=== PATIENT | male | born 1950 | race Caucasian/White ===

== ENCOUNTER 2016-08-17 09:40 | Emergency (ER) | payer MEDICAID, MEDICARE ==
--- NOTE | 2016-08-17 12:43 | ER Document Report ---
ED General - General Chief Complaint: Low Back Pain Stated Complaint: BACK/HIP PAIN Mode of Arrival: Ambulatory Information source: Patient TRAVEL OUTSIDE OF THE [place] IN LAST 30 DAYS: No - HPI Onset: Yesterday - LAST PM Onset/Duration: Gradual Quality of pain: Dull Severity: Moderate Context: NO INJURY OR INCIDENT RECALLED Associated symptoms: None Exacerbated by: Movement, Walking Relieved by: Remaining still - PARTIAL RELIEF Similar symptoms previously: Yes - HAS CHRONIC PAIN IN LOW BACK Recently seen / treated by doctor: Yes Notes: Patient states he saw Dr. Bonilla (pain management) and had injection in his back 3 weeks ago. Also, he has seen Dr. Lantigua in the past few days and was begun on Ceftin for a respiratory infection. Also, upon visiting Dr. Grzegorz torres, he was found to have new onset of type II diabetes and was begun on metformin. - Related Data Allergies/Adverse Reactions: No Known Allergies Allergy (Verified 08/17/16 09:47) Past Medical History - General Information source: Patient - Social History Smoking Status: Former Smoker Cigarette use (# per day): No Chew tobacco use (# tins/day): No Frequency of alcohol use: None Drug Abuse: None Family History: Arthritis, CAD, CVA, Hyperlipidemia, Hypertension, Malignancy Patient has suicidal ideation: No Patient has homicidal ideation: No - Past Medical History Cardiac Medical History: Reports: Hx Hypercholesterolemia, Hx Hypertension Denies: Hx Heart Attack Pulmonary Medical History: Reports: Hx Bronchitis Denies: Hx Asthma Neurological Medical History: Denies: Hx Cerebrovascular Accident, Hx Seizures Renal/ Medical History: Reports: Hx Benign Prostatic Hyperplasia. Denies: Hx Peritoneal Dialysis GI Medical History: Reports: Hx Gastroesophageal Reflux Disease, Hx Colonoscopy , Hx Endoscopy. Denies: Hx Hepatitis, Hx Hiatal Hernia, Hx Ulcer Musculoskeltal Medical History: Reports Hx Arthritis - RA, Reports Hx Gout, Reports Hx Musculoskeletal Deformity, Reports Hx Musculoskeletal Trauma Infectious Medical History: Denies: Hx Hepatitis Past Surgical History: Reports: Hx Cholecystectomy, Hx Orthopedic Surgery - Cervical spinal fusion. Denies: Hx Open Heart Surgery, Hx Pacemaker - Immunizations Hx Diphtheria, Pertussis, Tetanus Vaccination: Yes Review of Systems - Review of Systems Constitutional: No symptoms reported. denies: Chills, Diaphoresis, Fever EENT: No symptoms reported Cardiovascular: No symptoms reported Respiratory: Cough Gastrointestinal: No symptoms reported Genitourinary: No symptoms reported. denies: Incontinence, Retention Musculoskeletal: See HPI, Joint pain - LEFT HIP Skin: No symptoms reported Neurological/Psychological: No symptoms reported Physical Exam - Vital signs Vitals: Temp Pulse Resp BP Pulse Ox 98.1 F 95 18 106/61 94 08/17/16 09:46 08/17/16 09:46 08/17/16 09:46 08/17/16 09:46 08/17/16 09:46 Interpretation: Normal - General General appearance: Appears well, Alert In distress: None - HEENT Head: Normocephalic Eyes: Normal Conjunctiva: Normal Ears: Normal Nasal: Normal Mouth/Lips: Normal Mucous membranes: Normal - Respiratory Respiratory status: No respiratory distress Breath sounds: Normal - Cardiovascular Rhythm: Regular Heart sounds: Normal auscultation Murmur: No - Abdominal Inspection: Obese - Back Back: Normal, Nontender - Extremities General upper extremity: Normal inspection General lower extremity: Normal inspection Hip: Other - No pain with passive rotation of left hip joint. Positive pain with straight leg raising at 30 on left. - Neurological Neuro grossly intact: Yes Cognition: Normal Orientation: AAOx4 - Psychological Associated symptoms: Normal affect, Normal mood - Skin Skin Temperature: Warm Skin Moisture: Dry Skin Color: Normal Skin Turgor: Elastic Course - Vital Signs Vital signs: Temp Pulse Resp BP Pulse Ox 98.1 F 95 18 106/61 94 08/17/16 09:46 08/17/16 09:46 08/17/16 09:46 08/17/16 09:46 08/17/16 09:46 - Laboratory Result Diagrams: 08/17/16 13:46 Laboratory results interpreted by me: 08/17/16 08/17/16 13:46 13:46 RBC 3.92 L Hgb 13.0 L RDW 14.4 H ESR 101 H C-Reactive Protein 48.2 H Remarkable results from laboratory studies include a normal WBC count. Sedimentation rate and CRP are elevated, probably due to the patient's chronic rheumatic disease. - Diagnostic Test Radiology reviewed: Image reviewed, Reports reviewed Discharge - Discharge Clinical Impression: Low back pain with left-sided sciatica Qualifiers: Chronicity: acute Back pain laterality: midline Qualified Code(s): M54.42 - Lumbago with sciatica, left side Condition: Stable Disposition: HOME, SELF-CARE Instructions: Low Back Pain ([facility]), Oral Narcotic Medication ([facility]), Pain Medication Injection ([facility]), Warm Packs ([facility]), Ibuprofen (General) ([facility]) Additional Instructions: AVOID PAINFUL ACTIVITY. RESUME TAKING IBUPROFEN, 800 mg THREE TIMES A DAY. YOU MAY TAKE DILAUDID IF NEEDED FOR PAIN. CONTINUE ALL OTHER MEDS BEFORE. FOLLOW UP WITH DR. LANTIGUA IN 3-7 DAYS. RETURN TO E.R. IF PROBLEMS. Prescriptions: Hydromorphone HCl [Dilaudid 2 Mg Tablet] 2 mg PO Q4HP PRN #10 tablet PRN Reason: For Pain Ibuprofen [Motrin 800 mg Tablet] 800 mg PO Q8 PRN #20 tablet PRN Reason: For Pain Referrals: NEGRO LANTIGUA MD [[facility]] - Follow up in 3-5 days
[2016-08-17] MEDS ORDERED: HYDROMORPHONE HCL INJ/PF 2 MG/ML AMPULE IM ONE (13:22)
[2016-08-17] MEDS ORDERED: ONDANSETRON 4 MG TAB.RAPDIS PO ONE (13:22)
[2016-08-17 14:06] LABS: ABSOLUTE EOSINOPHILS # (AUTO) 0.3 10^3/uL (0.0-0.6); ABSOLUTE LYMPHOCYTES (AUTO) 1.1 10^3/uL (0.5-4.7); ABSOLUTE NEUT (AUTO) 5.5 10^3/uL (1.7-8.2); BASOPHILS % (AUTO) 0.3 % (0-2); EOSINOPHILS % (AUTO) 3.5 % (0-6); HEMATOCRIT 37.9 % (37.9-51.0); HGB HCT DIFFERENCE 1.1; LYMPHOCYTES % (AUTO) 14.1 % (13-45); MEAN CORPUSCULAR HEMOGLOBIN 33.1 pg (27.0-33.4); MEAN CORPUSCULAR HGB CONC 34.2 g/dL (32.0-36.0); MEAN CORPUSCULAR VOLUME 97 fl (80-97); MONOCYTES % (AUTO) 12.6 % (3-13); RED BLOOD COUNT 3.92 10^6/uL (4.35-5.55); RED CELL DISTRIBUTION WIDTH 14.4 % (11.5-14.0); SEGMENTED NEUTROPHILS % (AUTO) 69.5 % (42-78); WHITE BLOOD COUNT 7.9 10^3/uL (4.0-10.5)
[2016-08-17 14:39] LABS: ERYTHROCYTE SEDIMENTATION RATE 101 mm/hr (0-20)
[2016-08-17 15:57] VITALS: BP 108/56
== END 2016-08-17 15:58 | disposition home or self-care (01) ==
LOC: ER 09:40
DX: M54.42 Lumbago with sciatica, left side (principal); G89.29 Other chronic pain; M06.9 Rheumatoid arthritis, unspecified; M25.552 Pain in left hip; R05 Cough; E11.9 Type 2 diabetes mellitus without complications; J98.8 Other specified respiratory disorders; I10 Essential (primary) hypertension; Z98.1 Arthrodesis status; Z87.891 Personal history of nicotine dependence; Z98.890 Other specified postprocedural states
CPT/HCPCS: 99284; 96372; 36415; 85025; 85652; 86140; 72110; A9270; J1170; S0119

== ENCOUNTER → 2016-09-23 | Outpatient (CLI) | payer MEDICARE ==
[2016-09-23 13:41] LABS: HEMATOCRIT 33.3 % (37.9-51.0); HEMOGLOBIN 11.3 g/dL (13.5-17.0); HGB HCT DIFFERENCE 0.6; MEAN CORPUSCULAR HEMOGLOBIN 33.2 pg (27.0-33.4); MEAN CORPUSCULAR VOLUME 98 fl (80-97); RED BLOOD COUNT 3.41 10^6/uL (4.35-5.55); RED CELL DISTRIBUTION WIDTH 14.8 % (11.5-14.0); WHITE BLOOD COUNT 7.2 10^3/uL (4.0-10.5)
[2016-09-23 14:44] LABS: BASOPHILS % (MANUAL) 0 % (0-2); EOSINOPHILS % (MANUAL) 5 % (0-6); LYMPHOCYTES % (MANUAL) 25 % (13-45); TOTAL CELLS COUNTED 100
[2016-09-23 14:45] LABS: ANISOCYTOSIS SLIGHT; POLYCHROMASIA SLIGHT; TOXIC GRANULATION SLIGHT
== END ==
LOC: OD 12:17
PROVIDERS: ATTEND Internal Medicine
DX: J20.9 Acute bronchitis, unspecified (principal); R05 Cough
CPT/HCPCS: 36415; 71020; 85025

== ENCOUNTER → 2017-04-12 | Outpatient (CLI) | payer MEDICARE, OTHER ==
--- NOTE | 2017-04-12 19:41 | EKG REPORT ---
SEVERITY:- ABNORMAL ECG - SINUS RHYTHM BORDERLINE LEFT AXIS DEVIATION BORDERLINE R WAVE PROGRESSION, ANTERIOR LEADS NONSPECIFIC T ABNORMALITIES, INFERIOR LEADS : Confirmed by: Christie Schneider MD 12-Apr-2017 19:40:57
== END ==
LOC: OD 13:16
PROVIDERS: ATTEND Internal Medicine Nephrology
DX: E11.22 Type 2 diabetes mellitus with diabetic chronic kidney disease (principal); I13.0 Hypertensive heart and chronic kidney disease with heart failure and stage 1 through stage 4 chronic kidney disease, or unspecified chronic kidney disease; N18.3 Chronic kidney disease, stage 3 (moderate); I50.9 Heart failure, unspecified; R60.9 Edema, unspecified; N40.0 Benign prostatic hyperplasia without lower urinary tract symptoms
CPT/HCPCS: 93005; 93010

== ENCOUNTER 2017-06-14 18:53 | Inpatient (IN) | payer MEDICARE, OTHER ==
[2017-06-12] MEDS: ROCURONIUM BROMIDE INJ 50 MG/5 ML VIAL IV PRN (09:45)
[2017-06-14] MEDS ORDERED: PIPERACILLIN/TAZOBACTAM 4.5 GM VIAL IV ONE (20:46)
[2017-06-14] MEDS ORDERED: VANCOMYCIN HCL INJ 1000 MG VIAL IV ONE (20:46)
[2017-06-14] MEDS ORDERED: ACETAMINOPHEN 325 MG TABLET PO ONE (20:46)
[2017-06-14] MEDS ORDERED: NORMAL SALINE 1000 ML 1,000 ML IV ONE (20:46)
--- NOTE | 2017-06-14 20:48 | ER Document Report ---
ED Medical Screen (RME) - General Chief Complaint: Skin Sore(s) Stated Complaint: SKIN PROBLEM Time Seen by Provider: 06/14/17 20:46 Notes: Patient has progressive area of redness and swelling on his right face with fevers. He has been on amoxicillin at home with no relief. TRAVEL OUTSIDE OF THE [place] IN LAST 30 DAYS: No - Related Data Allergies/Adverse Reactions: No Known Allergies Allergy (Verified 06/14/17 18:54) Past Medical History - Social History Chew tobacco use (# tins/day): No Frequency of alcohol use: None Drug Abuse: None - Past Medical History Cardiac Medical History: Reports: Hx Hypercholesterolemia, Hx Hypertension Denies: Hx Heart Attack Pulmonary Medical History: Reports: Hx Bronchitis Denies: Hx Asthma Neurological Medical History: Denies: Hx Cerebrovascular Accident, Hx Seizures Renal/ Medical History: Reports: Hx Benign Prostatic Hyperplasia. Denies: Hx Peritoneal Dialysis GI Medical History: Reports: Hx Gastroesophageal Reflux Disease, Hx Colonoscopy , Hx Endoscopy. Denies: Hx Hepatitis, Hx Hiatal Hernia, Hx Ulcer Musculoskeltal Medical History: Reports Hx Arthritis - RA, Reports Hx Gout, Reports Hx Musculoskeletal Deformity, Reports Hx Musculoskeletal Trauma Infectious Medical History: Denies: Hx Hepatitis Past Surgical History: Reports: Hx Cholecystectomy, Hx Orthopedic Surgery - Cervical spinal fusion. Denies: Hx Open Heart Surgery, Hx Pacemaker - Immunizations Hx Diphtheria, Pertussis, Tetanus Vaccination: Yes Physical Exam - Vital signs Vitals: Temp Pulse Resp BP Pulse Ox 100.6 F H 104 H 20 140/93 H 96 06/14/17 19:35 06/14/17 19:35 06/14/17 19:35 06/14/17 19:35 06/14/17 19:35 Course - Vital Signs Vital signs: Temp Pulse Resp BP Pulse Ox 100.6 F H 104 H 20 140/93 H 96 06/14/17 19:35 06/14/17 19:35 06/14/17 19:35 06/14/17 19:35 06/14/17 19:35
[2017-06-14 21:52] LABS: VENOUS BLOOD BASE EXCESS 2.8 mmol/L; VENOUS BLOOD HCO3 24.6 mmol/L (20-32); VENOUS BLOOD PCO2 31.3 mmHg (35-63); VENOUS BLOOD PH 7.51 (7.30-7.42)
[2017-06-14 21:58] LABS: ABSOLUTE EOSINOPHILS # (AUTO) 0.1 10^3/uL (0.0-0.6); ABSOLUTE LYMPHOCYTES (AUTO) 1.2 10^3/uL (0.5-4.7); ABSOLUTE MONOCYTES (AUTO) 1.6 10^3/uL (0.1-1.4); ABSOLUTE NEUT (AUTO) 5.4 10^3/uL (1.7-8.2); BASOPHILS % (AUTO) 0.3 % (0-2); EOSINOPHILS % (AUTO) 1.2 % (0-6); HEMOGLOBIN 11.4 g/dL (13.5-17.0); MEAN CORPUSCULAR HEMOGLOBIN 33.2 pg (27.0-33.4); MEAN CORPUSCULAR HGB CONC 34.4 g/dL (32.0-36.0); MEAN CORPUSCULAR VOLUME 97 fl (80-97); MONOCYTES % (AUTO) 19.1 % (3-13); RED BLOOD COUNT 3.42 10^6/uL (4.35-5.55); RED CELL DISTRIBUTION WIDTH 13.3 % (11.5-14.0); SEGMENTED NEUTROPHILS % (AUTO) 65.4 % (42-78); TOTAL CELLS COUNTED % (AUTO) 100 %; WHITE BLOOD COUNT 8.3 10^3/uL (4.0-10.5)
--- NOTE | 2017-06-14 22:16 | ER Document Report ---
ED General - General Chief Complaint: Skin Sore(s) Stated Complaint: SKIN PROBLEM Time Seen by Provider: 06/14/17 20:46 Notes: Patient is a 66-year-old male who is a diabetic who presents with complaint of facial infection. He says several days ago he had this red bump. His face. He said that red bumps are spreading redness started to spread and he developed some crusting and drainage along the face. He saw his primary care doctor who placed him on amoxicillin. His redness has continued spreading and is getting worse. Started having fevers today. No vomiting. No diarrhea. He is a diabetic. He said blood sugars have been well controlled. No other complaints at this time. Patient did have the shingles vaccination approximately last week. Patient says the redness is starting to get near the base of his right eye but says his vision in his right eye is not affected. TRAVEL OUTSIDE OF THE [place] IN LAST 30 DAYS: No - Related Data Allergies/Adverse Reactions: No Known Allergies Allergy (Verified 06/14/17 18:54) Past Medical History - Social History Smoking Status: Never Smoker Chew tobacco use (# tins/day): No Frequency of alcohol use: None Drug Abuse: None Family History: Arthritis, CAD, CVA, Hyperlipidemia, Hypertension, Malignancy Patient has suicidal ideation: No Patient has homicidal ideation: No - Past Medical History Cardiac Medical History: Reports: Hx Hypercholesterolemia, Hx Hypertension Denies: Hx Heart Attack Pulmonary Medical History: Reports: Hx Bronchitis Denies: Hx Asthma Neurological Medical History: Denies: Hx Cerebrovascular Accident, Hx Seizures Renal/ Medical History: Reports: Hx Benign Prostatic Hyperplasia. Denies: Hx Peritoneal Dialysis GI Medical History: Reports: Hx Gastroesophageal Reflux Disease, Hx Colonoscopy , Hx Endoscopy. Denies: Hx Hepatitis, Hx Hiatal Hernia, Hx Ulcer Musculoskeltal Medical History: Reports Hx Arthritis - RA, Reports Hx Gout, Reports Hx Musculoskeletal Deformity, Reports Hx Musculoskeletal Trauma Infectious Medical History: Denies: Hx Hepatitis Past Surgical History: Reports: Hx Cholecystectomy, Hx Orthopedic Surgery - Cervical spinal fusion. Denies: Hx Open Heart Surgery, Hx Pacemaker - Immunizations Hx Diphtheria, Pertussis, Tetanus Vaccination: Yes Review of Systems - Review of Systems Notes: My Normal Review Basic REVIEW OF SYSTEMS: CONSTITUTIONAL : Denies fever, chills, or sweats. Denies recent illness. EENT: Redness over the right cheek and right side of face. CARDIOVASCULAR: Denies chest pain. RESPIRATORY: Denies cough, cold, or chest congestion. Denies shortness of breath, difficulty breathing, or wheezing. GASTROINTESTINAL: Denies abdominal pain. Denies nausea, vomiting, or diarrhea. Denies constipation. Last BM: MUSCULOSKELETAL: Denies neck or back pain or joint pain or swelling. SKIN: Denies rash or skin lesions. NEUROLOGICAL: Denies altered mental status or loss of consciousness. Denies headache. Denies weakness or paralysis or loss of use of either side. Denies problems with gait or speech. Denies sensory or motor loss. ALL OTHER SYSTEMS REVIEWED AND NEGATIVE. Physical Exam - Vital signs Vitals: Temp Pulse Resp BP Pulse Ox 100.6 F H 104 H 20 140/93 H 96 06/14/17 19:35 06/14/17 19:35 06/14/17 19:35 06/14/17 19:35 06/14/17 19:35 - Notes Notes: General Appearance: Well nourished, alert, cooperative, no acute distress, no obvious discomfort. Vitals: reviewed, See vital signs table. Head: Redness and swelling over the right side of face. It seems initiate from the right zygomatic arch and spread towards the right nose and then superiorly up to his right face. There is some crusting so she with this. Redness just starts to extend into the right lower eyelid but the eye itself does not appear to be red or infected at this time. Eyes: PERRL, EOMI, Conjuctiva clear. No dendritic lesions seen on fluoroscein staining and on slit lamp examination Mouth: No decreasd moisture. Patient has false teeth only. Throat: No tonsillar inflammation, No airway obstruction, No lymphadenopathy Neck: Supple, no neck tenderness, No thyromegaly Lungs: No wheezing, No rales, No rhonci, No accessory muscle use, good air exchange bilaterally. Heart: Normal rate, Regular rythm, No murmur, no rub Extremities: strength 5/5 in all extremities, good pulses in all extremities, no swelling or tenderness in the extremities, no edema. Skin: warm, dry, appropriate color, no rash Neuro: speech clear, oriented x 3, normal affect, responds appropriately to questions. Course - Re-evaluation Re-evalutation: 06/15/17 00:51 Redness and the patient's face continues spread is not past the midline. They have concerned that this could be facial shingles. I did do a ophthalmic exam. I do not see any evidence of dendritic lesions. I have treated patient for both potential bacterial as well as herpetic infection. I have given both antibiotics and acyclovir. I will wait to speak with the hospitalist for potential admission. CT scan of the face shows no evidence of facial abscess. 06/15/17 01:43 I initially tried to call the auto vinyl top installer on-call, Dr. Wells, but we did not hear back. The roll line operator was able to get in touch with his partner,Dr. Kumari. He agrees with the IV acyclovir. He says if the eye itself starts to become red he would recommend actually applying bacitracin ophthalmic ointment to the eye as it is still not 100% clear that this could also be bacterial and patient could also get a bacterial superinfection of the eye. He also took down the patient's numbers that when the patient is eventually discharged from the hospital that he can follow-up with the patient and recheck him. 06/15/17 06:23 I do suspect patient was likely has a facial shingles with a bacterial superinfection. He is being treated for both. He is on immunosuppressive therapy and therefore treatment will need continued and most likely he will need admission. I did speak with the hospitalist, Dr. Oshea, who agreed to accept the patient. Dictation of this chart was performed using voice recognition software; therefore, there may be some unintended grammatical errors. - Vital Signs Vital signs: Temp Pulse Resp BP Pulse Ox 101.3 F H 70 14 126/71 H 96 06/15/17 05:37 06/14/17 23:18 06/15/17 06:01 06/15/17 06:01 06/15/17 06:01 - Laboratory Result Diagrams: 06/14/17 21:30 06/14/17 21:30 Laboratory results interpreted by me: 06/14/17 06/14/17 06/14/17 21:30 21:30 21:30 RBC 3.42 L Hgb 11.4 L Hct 33.0 L Plt Count 69 L Monocytes % 19.1 H Absolute Monocytes 1.6 H VBG pH 7.51 H VBG pCO2 31.3 L BUN 24 H Creatinine 1.74 H Est GFR ( Amer) 48 L Est GFR (Non-Af Amer) 39 L Direct Bilirubin 0.6 H AST 64 H Urine Blood Urine Urobilinogen 06/15/17 01:05 RBC Hgb Hct Plt Count Monocytes % Absolute Monocytes VBG pH VBG pCO2 BUN Creatinine Est GFR ( Amer) Est GFR (Non-Af Amer) Direct Bilirubin AST Urine Blood MODERATE H Urine Urobilinogen 2.0 H Discharge - Discharge Clinical Impression: Cellulitis Qualifiers: Site of cellulitis: face Qualified Code(s): L03.211 - Cellulitis of face Condition: Stable Disposition: ADMITTED INPATIENT Admitting Provider: Hospitalist Unit Admitted: Medical Floor
[2017-06-14 22:18] LABS: ALANINE AMINOTRANSFERASE 35 U/L (21-72); ALBUMIN 3.8 g/dL (3.5-5.0); ALKALINE PHOSPHATASE 59 U/L (38-126); ANION GAP 8 (5-19); ASPARTATE AMINO TRANSFERASE 64 U/L (17-59); BILIRUBIN,DIRECT 0.6 mg/dL (0.0-0.4); BILIRUBIN,TOTAL 1.1 mg/dL (0.2-1.3); BLOOD UREA NITROGEN 24 mg/dL (7-20); CALCIUM 9.2 mg/dL (8.4-10.2); CARBON DIOXIDE 26 mmol/L (22-30); CHLORIDE 106 mmol/L (98-107); GLUCOSE 110 mg/dL (75-110); PLATELET COUNT 69 10^3/uL (150-450); POTASSIUM 3.9 mmol/L (3.6-5.0); SODIUM 140.4 mmol/L (137-145); TOTAL PROTEIN 7.7 g/dL (6.3-8.2)
--- NOTE | 2017-06-14 23:57 | RADIOLOGY REPORT (SQ) ---
EXAM DESCRIPTION: CT FACIAL AREA WITH COMPLETED DATE/TIME: 06/14/2017 11:11 pm REASON FOR STUDY: abscess of face COMPARISON: None. TECHNIQUE: Post contrast images through the facial bones and orbits windowed for bone and soft tissu e. Additional coronal and sagittal reconstructed images reviewed. All images stored on PACS. All CT scanners at this facility use dose modulation, iterative reconstruction, and/or weight based d osing when appropriate to reduce radiation dose to as low as reasonably achievable (ALARA). [facility]: Dose Right [facility]: CareDose [facility]: Dose Right [facility]: Teradose 4D [facility]: Tapru CONTRAST TYPE AND DOSE: contrast/concentration: Isovue 300.00 mg/ml; Total Contrast Delivered: 63.4 ml; Total Saline Delivered: 36.0 ml RENAL FUNCTION: BUN 24 creatinine 1.74 RADIATION DOSE: CT Rad equipment meets quality standard of care and radiation dose reduction techniq ues were employed. CTDIvol: 30.4 mGy. DLP: 619 mGy-cm. . LIMITATIONS: None. FINDINGS: FACIAL BONES: No fracture or bone lesion. ORBITS: Intact. No fracture. Symmetric intact globes and retroorbital soft tissues. PARANASAL SINUSES: Clear. No significant mucosal thickening, mass or fluid. No nasal polyps. Maxilla ry sinus outlets are patent. SOFT TISSUES: Diffuse swelling -cellulitis throughout the subcutaneous fat of the right facial soft t issues including the midline upper lip. No rim enhancing fluid collection is identified or radiopaqu e foreign bodies. INFERIOR BRAIN: Limited view. No acute findings. OTHER: No other significant finding. IMPRESSION: Diffuse swelling -cellulitis throughout the subcutaneous fat of the right facial soft ti ssues including the midline upper lip. No rim enhancing fluid collection is identified or radiopaque foreign bodies. TECHNICAL DOCUMENTATION: JOB ID: [id number] Quality ID # [id number]: Final reports with documentation of one or more dose reduction techniques (e.g., Au tomated exposure control, adjustment of the mA and/or kV according to patient size, use of iterative reconstruction technique) 2010 [employer]- All Rights Reserved
[2017-06-15] MEDS ORDERED: TETRACAINE HCL 0.5% OPH SOLN 2 ML OD ONE (00:31)
[2017-06-15] MEDS ORDERED: ACYCLOVIR SODIUM INJ/PF 500 MG/10 ML SDV IV ONE (00:33)
[2017-06-15] MEDS ORDERED: PIPERACILLIN/TAZOBACTAM 4.5 GM VIAL IV ONE (01:00)
[2017-06-15 01:41] LABS: APPEARANCE,URINE CLEAR; BILIRUBIN,URINE NEGATIVE (NEGATIVE); COLOR,URINE YELLOW; GLUCOSE, URINE NEGATIVE (NEGATIVE); KETONES,URINE NEGATIVE (NEGATIVE); LEUKOCYTE ESTERASE,URINE NEGATIVE (NEGATIVE); NITRITE,URINE NEGATIVE (NEGATIVE); PROTEIN,URINE NEGATIVE (NEGATIVE); URINE SPECIFIC GRAVITY 1.044
[2017-06-15] MEDS ORDERED: ONDANSETRON HCL INJ/PF 4 MG/2 ML SDV IV PRN (05:12)
[2017-06-15] MEDS ORDERED: OXYCODONE-ACETAMINOPHEN 5-325 MG TABLET PO PRN (05:12)
[2017-06-15] MEDS ORDERED: ZOLPIDEM TARTRATE 5 MG TABLET PO PRN (05:12)
[2017-06-15] MEDS ORDERED: ACYCLOVIR SODIUM INJ/PF 500 MG/10 ML SDV IV SCH (05:15)
[2017-06-15] MEDS ORDERED: DEXTROSE 40% GEL 15 GM TUBE PO PRN ×2 (05:24)
[2017-06-15] MEDS ORDERED: INSULIN LISPRO 100 UNIT/ML 3 ML VIAL SUBCUT PRN (05:24)
[2017-06-15] MEDS ORDERED: GLUCAGON,HUMAN RECOMB 1 MG INJ IM PRN (05:24)
[2017-06-15] MEDS ORDERED: DEXTROSE 50%-WATER 25 GM/50 ML DISP.SYRIN IV PRN ×2 (05:24)
--- NOTE | 2017-06-15 05:48 | PDOC H&P ---
History of Present Illness Admission Date/PCP: 06/15/17 03:50 NEGRO ALANIS MD Patient complains of: Painful eruption on right cheek History of Present Illness: STEFF LIND is a 66 year old male who recently had received shingles vaccine as many of his family members had come down with the shingles. 2 days ago he developed pustules on his right cheek which became more painful and so presented to the emergency room. Here he was felt to have trigeminal zoster and was started on antiviral therapy. He was also felt to have a component of bacterial superinfection and was also given antibiotics. He is referred to us for further management Past Medical History Cardiac Medical History: Reports: Hyperlipidema, Hypertension Denies: Myocardial Infarction Pulmonary Medical History: Reports: Bronchitis Denies: Asthma Neurological Medical History: Denies: Seizures Endocrine Medical History: Reports: Diabetes Mellitus Type 2 GI Medical History: Reports: Gastroesophageal Reflux Disease Denies: Hepatitis, Hiatal Hernia Musculoskeltal Medical History: Reports: Arthritis - RA, Gout Skin Medical History: Reports: Psoriasis Hematology: Denies: Anemia, Sickle Cell Disease Past Surgical History Past Surgical History: Reports: Cholecystectomy, Orthopedic Surgery - Cervical spinal fusion Denies: Pacemaker Social History Information Source: Patient Lives with: Spouse/Significant other Smoking Status: Never Smoker Frequency of Alcohol Use: None Hx Recreational Drug Use: No Drugs: None Hx Prescription Drug Abuse: No - Advance Directive Resuscitation Status: Full Code Family History Family History: Arthritis, CAD, CVA, Hyperlipidemia, Hypertension, Malignancy Parental Family History Reviewed: Yes Children Family History Reviewed: Yes Sibling(s) Family History Reviewed.: Yes Medication/Allergy Home Medications: Amlodipine Besylate/Benazepril [Amlodipine-Benazepril 2.5-10] 1 cap PO DAILY 11/01 Atenolol [Tenormin 25 mg Tablet] 10 mg PO DAILY 08/25/12 Dutasteride/Tamsulosin HCl [Candy 0.5-0.4 mg Capsule] 1 cap PO BID 08/25/12 Esomeprazole Mag Trihydrate [Nexium] 40 mg PO DAILY 08/25/12 Folic Acid [Folvite 1 mg Tablet] 1 mg PO DAILY 08/25/12 Gabapentin [Neurontin 100 mg Capsule] 400 mg PO BID 08/25/12 Methotrexate Sodium [Rheumatrex] 2.5 mg PO ASDIR 08/25/12 Oxycodone HCl [Oxycontin] 20 mg PO BID 08/25/12 Pravastatin Sodium [Pravachol] 40 mg PO DAILY 08/25/12 Tofacitinib Citrate [Xeljanz] 5 mg PO BID 04/19/13 Azithromycin [Zithromax 250 mg Tablet] 250 mg PO ASDIR PRN #6 tablet 05/06/13 Zolpidem Tartrate [Ambien 10 mg Tablet] 1 tab PO QHS 05/06/13 Hydromorphone HCl [Dilaudid 2 Mg Tablet] 2 mg PO Q4HP PRN #10 tablet 08/17/16 Ibuprofen [Motrin 800 mg Tablet] 800 mg PO Q8 PRN #20 tablet 08/17/16 Allergies/Adverse Reactions: No Known Allergies Allergy (Verified 06/14/17 18:54) Review of Systems Constitutional: ABSENT: fatigue, fever(s), headache(s), weakness Eyes: ABSENT: visual disturbances Ears: ABSENT: hearing changes Nose, Mouth, and Throat: ABSENT: mouth pain, sore throat Cardiovascular: PRESENT: edema. ABSENT: chest pain, dyspnea on exertion, orthropnea, palpitations Respiratory: PRESENT: dyspnea. ABSENT: cough Gastrointestinal: PRESENT: heartburn. ABSENT: constipation, diarrhea, nausea, vomiting Genitourinary: PRESENT: difficulty urinating, nocturia. ABSENT: dysuria Integumentary: PRESENT: other - Psoriatic plaques and dystrophic nails Neurological: ABSENT: abnormal gait, abnormal speech, confusion, dizziness, focal weakness, syncope Psychiatric: ABSENT: anxiety, depression, homidical ideation, suicidal ideation Endocrine: PRESENT: other - Diabetes Hematologic/Lymphatic: ABSENT: easy bleeding, easy bruising Physical Exam Vital Signs: Temp Pulse Resp BP Pulse Ox 98.2 F 70 18 121/74 96 06/15/17 03:00 06/14/17 23:18 06/15/17 04:01 06/15/17 05:01 06/15/17 04:31 General appearance: PRESENT: no acute distress, cooperative, obese Head exam: PRESENT: atraumatic, normocephalic Eye exam: PRESENT: EOMI, PERRLA Ear exam: PRESENT: normal external ear exam Neck exam: ABSENT: carotid bruit, JVD, meningismus Respiratory exam: PRESENT: clear to auscultation davin, symmetrical, unlabored. ABSENT: accessory muscle use, chest wall tenderness Cardiovascular exam: PRESENT: RRR. ABSENT: bradycardia, diastolic murmur, systolic murmur GI/Abdominal exam: PRESENT: normal bowel sounds, soft. ABSENT: guarding, organolmegaly, rebound, tenderness Rectal exam: PRESENT: deferred Extremities exam: PRESENT: +1 edema Musculoskeletal exam: PRESENT: normal inspection. ABSENT: deformity Neurological exam: PRESENT: alert, awake, oriented to person, oriented to place , oriented to time, oriented to situation Psychiatric exam: PRESENT: appropriate affect, normal mood. ABSENT: homicidal ideation, suicidal ideation Skin exam: PRESENT: dry, intact, warm, other - Psoriatic plaques. ABSENT: cyanosis, rash Results Laboratory Results: 06/14/17 06/14/17 06/15/17 21:30 21:30 01:05 WBC 8.3 RBC 3.42 L Hgb 11.4 L Hct 33.0 L Plt Count 69 L Monocytes % 19.1 H Sodium 140.4 BUN 24 H Creatinine 1.74 H AST 64 H ALT 35 Alkaline Phosphatase 59 Total Protein 7.7 Albumin 3.8 Ur Leukocyte Esterase NEGATIVE Impressions: Facial Bones CT 06/14/17 20:47 IMPRESSION: Diffuse swelling -cellulitis throughout the subcutaneous fat of the right facial soft tissues including the midline upper lip. No rim enhancing fluid collection is identified or radiopaque foreign bodies. Assessment & Plan - Diagnosis (1) Trigeminal herpes zoster Is this a current diagnosis for this admission?: Yes (2) Rheumatoid arthritis Qualifiers: Rheumatoid arthritis location: unspecified site Rheumatoid factor presence : unspecified presence Qualified Code(s): M06.9 - Rheumatoid arthritis, unspecified Is this a current diagnosis for this admission?: Yes (3) Psoriasis Is this a current diagnosis for this admission?: Yes (4) Thrombocytopenia Is this a current diagnosis for this admission?: Yes (5) DM2 (diabetes mellitus, type 2) Qualifiers: Diabetes mellitus complication status: with unspecified complications Diabetes mellitus usp insulin use: without usp use Qualified Code( s): E11.8 - Type 2 diabetes mellitus with unspecified complications Is this a current diagnosis for this admission?: Yes (6) BPH w urinary obs/LUTS Is this a current diagnosis for this admission?: Yes (7) HTN (hypertension) Qualifiers: Hypertension type: essential hypertension Qualified Code(s): I10 - Essential (primary) hypertension Is this a current diagnosis for this admission?: Yes - Time Time Spent: 30 to 50 Minutes - Inpatient Certification Based on my medical assessment, after consideration of the patient's comorbidities, presenting symptoms, or acuity I expect that the services needed warrant INPATIENT care.: Yes I certify that my determination is in accordance with my understanding of Medicare's requirements for reasonable and necessary INPATIENT services [42 CFR 412.3e].: Yes Medical Necessity: Significant Comorbidiites Make Outpatient Treatment Too Risky , Need For IV Fluids, Need for Pain Control, Need for IV Antibiotics - Plan Summary Plan Summary: Patient will be continued on intravenous acyclovir. I will defer to my daytime colleague's if they wish to continue antibiotics. Patient will receive DVT prophylaxis with low molecular weight heparin's He will receive medication for pain control and sliding scale insulin while in hospital Home medications will be continued except for his immune modulators. Anticipated length of stay is greater than 2 midnights.
[2017-06-15] MEDS ORDERED: RINGERS SOLUTION,LACTATED 1,000 ML IV PRN (05:51)
[2017-06-15 07:14] LABS: CHOLESTEROL 217.45 mg/dL (0-200); TRIGLYCERIDES 322 mg/dL (<150)
[2017-06-15 07:29] LABS: DIRECT LDL 94 mg/dL (<100)
[2017-06-15 07:30] LABS: VLDL CHOLESTEROL 64.4 mg/dL (10-31)
[2017-06-15] MEDS: NORMAL SALINE IV SCH ×2 (09:49→19:09)
[2017-06-15] MEDS: ACYCLOVIR SODIUM IV SCH ×2 (09:49→19:09)
[2017-06-15] MEDS: ACETAMINOPHEN 325 MG TABLET PO PRN ×3 (09:50→19:10)
[2017-06-15] MEDS: ENOXAPARIN SODIUM INJ 40 MG/0.4 ML DISP.SYRIN SUBCUT SCH (09:51)
[2017-06-15] MEDS: DOCUSATE SODIUM 100 MG CAPSULE PO SCH (09:51)
[2017-06-15] MEDS: FAMOTIDINE 20 MG TABLET PO SCH ×2 (09:51→21:18)
--- NOTE | 2017-06-15 10:09 | PROGRESS NOTE E ---
Progress Note NAME: STEFF LIND : 1950 AGE: 66Y DATE: 06/15/2017 ROOM: ED15 SUBJECTIVE: The patient is currently lying on a stretcher. He states that he does not feel well. He complains of full body aches. The patient denies any nausea or vomiting, diarrhea, does admit to some mild abdominal pain, but no shortness of breath or dizziness, no chest pain. No difficulty swallowing. No numbness. The patient has been quite febrile with a temperature of 101.6 and the patient has not voiced any other concerns at this time. REVIEW OF SYSTEMS: Rest of the review of systems negative. MEDICATIONS: Medications have been reviewed. OBJECTIVE: GENERAL: The patient is a 66-year-old, male, who is awake and alert. He is oriented to person, place, time and situation. He is verbal, conversational, and does not appear to be in any acute distress. VITAL SIGNS: As follows: Temperature is 101.6, pulse 97, respirations 14, blood pressure is 119/71. Oxygen saturation 96% on room air. SKIN: Warm and dry. The patient is not diaphoretic. HEENT: Pupils are reactive. Extraocular muscles in place. The patient is able to swallow. The patient does have a zoster of the right trigeminal facial area. There is redness, but no purulent drainage or significant evidence of secondary cellulitis. CARDIOVASCULAR SYSTEM: Heart is regular without murmurs or rub. CHEST: Clear, symmetrically, unlabored. ABDOMEN: Soft, nontender, nondistended. BACK: No CVA tenderness or sacral edema. EXTREMITIES: No clubbing, cyanosis, or edema. PSYCHIATRIC: Appropriate affect. Pleasant mood. DIAGNOSTICS: Lab values are as follows: Hematology obtained on 06/14/2017: WBCs are 8.3, hemoglobin 11.4, hematocrit 33.0, platelet count 69,000. Chemistry obtained on 06/15/2017: Glucose is 113, BNP is 2,700, triglycerides 322, cholesterol 217, LDL 94, VLDL 64, HDL 24. IMPRESSION AND PLAN: 1. TRIGEMINAL HERPES ZOSTER. Will continue acyclovir and continue supportive therapy. If the symptoms do not improve or cellulitis appears worsened, will add additional antibiotics and follow him. 2. RHEUMATOID ARTHRITIS. Will hold the patient's medications as this may be contributory, given his chronic immunosuppression. 3. PSORIASIS. The patient appears stable. 4. THROMBOCYTOPENIA. Will repeat CBC in the a.m. and follow. 5. DIABETES MELLITUS TYPE 2. Continue sliding-scale coverage and home medications once reconcilable. 6. HYPERTENSION. Will continue the patient's home medications once reconcilable. DISPOSITION: The patient is a FULL CODE. Pending patient's symptomatology and diagnostic findings, we will reevaluate in the a.m. TIME SPENT: On this followup, including assessment, plan, physical examination, patient education, and review of records, is 60 minutes. DICTATING PHYSICIAN: MACIEL XIE NP [id number] PHY#: [id number] ID: [id number] JOB#: [id number] ACCT: [id number] cc: >
[2017-06-15 10:35] LABS: A TYPE INFLUENZA AG NEGATIVE (NEGATIVE); B INFLUENZA AG NEGATIVE (NEGATIVE)
[2017-06-15] MEDS ORDERED: FUROSEMIDE 40 MG TABLET PO PRN (16:02)
[2017-06-15] MEDS ORDERED: MELOXICAM 7.5 MG TABLET PO PRN (16:02)
[2017-06-15] MEDS ORDERED: (PENDING PHARMACY ID) (Sitagliptin Phos/Metformin Hcl [Janumet 50-500 Mg Tablet] 1 TAB) PO SCH (17:00)
[2017-06-15] MEDS ORDERED: METFORMIN HCL 500 MG TABLET PO ONE (19:00)
[2017-06-15] MEDS ORDERED: SITAGLIPTIN PHOSPHATE 50 MG TABLET PO ONE (19:00)
[2017-06-15] MEDS: BENAZEPRIL HCL 20 MG TABLET PO SCH (21:16)
[2017-06-15] MEDS: OXYBUTYNIN CHLORIDE 5 MG TABLET PO SCH (21:17)
[2017-06-15] MEDS: GABAPENTIN 400 MG CAPSULE PO SCH (21:17)
[2017-06-15] MEDS: TAMSULOSIN HCL 0.4 MG CAP.SR.24H PO SCH (21:17)
[2017-06-15] MEDS: TRAZODONE HCL 50 MG TABLET PO SCH (21:18)
[2017-06-15] MEDS: ATORVASTATIN CALCIUM 10 MG TABLET PO SCH (21:19)
[2017-06-15] MEDS ORDERED: (PENDING PHARMACY ID) (Oxybutynin Chloride [Oxybutynin Chloride Er] 10 MG) PO SCH (22:00)
[2017-06-15] MEDS ORDERED: (PENDING PHARMACY ID) (Pravastatin Sodium [Pravachol] 40 MG) PO SCH (22:00)
[2017-06-16] MEDS: ACETAMINOPHEN 325 MG TABLET PO PRN ×4 (00:23→15:58)
[2017-06-16] MEDS: NORMAL SALINE IV SCH ×3 (01:54→17:50)
[2017-06-16] MEDS: ACYCLOVIR SODIUM IV SCH ×3 (01:54→17:50)
[2017-06-16 05:25] LABS: ABSOLUTE EOSINOPHILS # (AUTO) 0.1 10^3/uL (0.0-0.6); ABSOLUTE LYMPHOCYTES (AUTO) 1.1 10^3/uL (0.5-4.7); ABSOLUTE MONOCYTES (AUTO) 1.1 10^3/uL (0.1-1.4); ABSOLUTE NEUT (AUTO) 5.1 10^3/uL (1.7-8.2); BASOPHILS % (AUTO) 0.6 % (0-2); EOSINOPHILS % (AUTO) 1.3 % (0-6); HEMATOCRIT 30.2 % (37.9-51.0); HEMOGLOBIN 10.5 g/dL (13.5-17.0); LYMPHOCYTES % (AUTO) 15.2 % (13-45); MEAN CORPUSCULAR HEMOGLOBIN 33.4 pg (27.0-33.4); MEAN CORPUSCULAR HGB CONC 34.7 g/dL (32.0-36.0); MEAN CORPUSCULAR VOLUME 96 fl (80-97); MONOCYTES % (AUTO) 14.3 % (3-13); RED BLOOD COUNT 3.13 10^6/uL (4.35-5.55); RED CELL DISTRIBUTION WIDTH 13.2 % (11.5-14.0); SEGMENTED NEUTROPHILS % (AUTO) 68.6 % (42-78); TOTAL CELLS COUNTED % (AUTO) 100 %; WHITE BLOOD COUNT 7.5 10^3/uL (4.0-10.5)
[2017-06-16 05:33] LABS: ANION GAP 6 (5-19); BLOOD UREA NITROGEN 21 mg/dL (7-20); CALCIUM 8.8 mg/dL (8.4-10.2); CARBON DIOXIDE 25 mmol/L (22-30); CHLORIDE 109 mmol/L (98-107); GLUCOSE 109 mg/dL (75-110); MAGNESIUM 1.8 mg/dL (1.6-2.3); SODIUM 140.4 mmol/L (137-145)
[2017-06-16 05:58] LABS: PLATELET COUNT 52 10^3/uL (150-450)
[2017-06-16] MEDS ORDERED: METFORMIN HCL 500 MG TABLET PO SCH (08:00)
[2017-06-16] MEDS ORDERED: SITAGLIPTIN PHOSPHATE 50 MG TABLET PO SCH (08:00)
[2017-06-16] MEDS: BENAZEPRIL HCL 20 MG TABLET PO SCH ×2 (09:38→22:14)
[2017-06-16] MEDS: DOCUSATE SODIUM 100 MG CAPSULE PO SCH (09:40)
[2017-06-16] MEDS: CETIRIZINE 10 MG TABLET PO SCH (09:40)
[2017-06-16] MEDS: DUTASTERIDE 0.5 MG CAPSULE PO SCH (09:41)
[2017-06-16] MEDS: TAMSULOSIN HCL 0.4 MG CAP.SR.24H PO SCH ×2 (09:43→22:14)
[2017-06-16] MEDS: LANSOPRAZOLE 30 MG TAB.RAP.DR PO SCH (09:43)
[2017-06-16] MEDS ORDERED: VANCOMYCIN HCL 0 MG in DEXTROSE 5%-WATER 250 ML IV NR (09:45)
[2017-06-16] MEDS: ENOXAPARIN SODIUM INJ 40 MG/0.4 ML DISP.SYRIN SUBCUT SCH (09:53)
[2017-06-16] MEDS ORDERED: FUROSEMIDE INJ/PF 40 MG/4 ML SDV IV ONE (09:53)
[2017-06-16] MEDS ORDERED: (PENDING PHARMACY ID) (Esomeprazole Mag Trihydrate [Nexium] 40 MG) PO SCH (10:00)
--- NOTE | 2017-06-16 10:39 | PROGRESS NOTE E ---
Progress Note NAME: STEFF LIND : 1950 AGE: 66Y DATE: 06/16/2017 ROOM: 425 SUBJECTIVE: The patient is currently lying in bed. He states he feels better than he did yesterday. The patient denies any nausea or vomiting, no diarrhea, shortness of breath, dizziness, chest pain. No fevers or chills. The patient does admit to a cough. The patient's influenza is negative and the patient does not voice any other concerns at this time. REVIEW OF SYSTEMS: The rest of the review of systems is negative. MEDICATIONS: Medications have been reviewed. OBJECTIVE: GENERAL: The patient is a 66-year-old, male who is awake, alert and oriented to person, place, time and situation. He is verbal, conversational, does not appear to be in any acute distress. VITAL SIGNS: As follows: Temperature is 100.1, pulse 94, respirations 18, blood pressure is 117/68, oxygen saturation is 100% on room air. SKIN: Warm and dry. No rash. He is not diaphoretic. HEENT: Pupils are reactive. No evidence of JVP. The patient does have zoster over his right cheek and nose with redness, cellulitis appearance extending outward just below the orbits. CARDIOVASCULAR SYSTEM: Heart is regular rhythm without murmur or rub. CHEST: The patient has bilateral basal crackles, symmetrical, unlabored. ABDOMEN: Soft, nontender, nondistended. BACK: No CVA tenderness or sacral edema. EXTREMITIES: No clubbing, cyanosis, or edema. PSYCHIATRIC: Appropriate affect, pleasant mood. DIAGNOSTICS: Lab values are as follows: Hematology obtained on 06/16/2017: WBCs are 7.5, hemoglobin 10.5, hematocrit 30.2, platelet count 52,000. Chemistry obtained on 06/16/2017: Sodium 140, potassium 4.0, chloride 109, carbon dioxide 25, BUN 21, creatinine 1.56, glucose 109. Calcium is 8.8, magnesium 1.8. BNP is 4120. IMPRESSION AND PLAN: 1. TRIGEMINAL HERPES ZOSTER. Will continue acyclovir and supportive therapy. It does appear the patient has a cellulitis extending from this. Therefore, we will additionally add vancomycin to cover secondary infection and follow. 2. RHEUMATOID ARTHRITIS. Will continue the patient's home medications except for his chronic immunosuppressive agent. 3. PSORIASIS. Overall stable. 4. THROMBOCYTOPENIA. Will repeat CBC in the a.m. and follow closely. 5. DIABETES MELLITUS TYPE 2. Continue sliding-scale coverage and hold the patient's home medications except for Januvia, given the patient's renal function. 6. HYPERTENSION. Will continue the patient's home medications. DISPOSITION: The patient is a FULL CODE. Pending patient's symptomatology and diagnostic findings, we will reevaluate in the a.m. TIME SPENT: On this followup including assessment, plan, physical examination, patient education, and review of records is 25 minutes. DICTATING PHYSICIAN: MACIEL XIE NP [id number] PHY#: [id number] ID: [id number] JOB#: [id number] ACCT: [id number] cc: >
[2017-06-16] MEDS ORDERED: VANCOMYCIN HCL 2,000 MG in DEXTROSE 5%-WATER 500 ML IV ONE (11:00)
[2017-06-16] MEDS: SITAGLIPTIN PHOSPHATE 50 MG TABLET PO SCH (15:59)
[2017-06-16] MEDS ORDERED: OXYCODONE-ACETAMINOPHEN 5-325 MG TABLET PO ONE (18:30)
[2017-06-16] MEDS: VANCOMYCIN HCL 1,000 MG in DEXTROSE 5%-WATER 250 ML IV SCH (22:13)
[2017-06-16] MEDS: NYSTATIN/DEXAMETH/DIPHEN SUSP 120 ML PO SCH ×2 (22:13→22:29)
[2017-06-16] MEDS: GABAPENTIN 400 MG CAPSULE PO SCH (22:14)
[2017-06-16] MEDS: ATORVASTATIN CALCIUM 10 MG TABLET PO SCH (22:14)
[2017-06-16] MEDS: OXYBUTYNIN CHLORIDE 5 MG TABLET PO SCH (22:14)
[2017-06-16] MEDS: TRAZODONE HCL 50 MG TABLET PO SCH (22:14)
[2017-06-17] MEDS: NORMAL SALINE IV SCH ×3 (01:13→20:03)
[2017-06-17] MEDS: ACYCLOVIR SODIUM IV SCH ×3 (01:13→20:03)
[2017-06-17] MEDS: ACETAMINOPHEN 325 MG TABLET PO PRN (01:14)
[2017-06-17 06:46] LABS: ANION GAP 8 (5-19); BLOOD UREA NITROGEN 26 mg/dL (7-20); CALCIUM 8.6 mg/dL (8.4-10.2); CARBON DIOXIDE 25 mmol/L (22-30); CHLORIDE 105 mmol/L (98-107); GLUCOSE 94 mg/dL (75-110); POTASSIUM 3.9 mmol/L (3.6-5.0); SODIUM 138.1 mmol/L (137-145)
[2017-06-17 07:01] LABS: ABSOLUTE EOSINOPHILS # (AUTO) 0.1 10^3/uL (0.0-0.6); ABSOLUTE LYMPHOCYTES (AUTO) 1.3 10^3/uL (0.5-4.7); ABSOLUTE MONOCYTES (AUTO) 0.9 10^3/uL (0.1-1.4); ABSOLUTE NEUT (AUTO) 8.2 10^3/uL (1.7-8.2); BASOPHILS % (AUTO) 0.3 % (0-2); EOSINOPHILS % (AUTO) 0.5 % (0-6); HEMATOCRIT 30.2 % (37.9-51.0); HEMOGLOBIN 10.4 g/dL (13.5-17.0); LYMPHOCYTES % (AUTO) 12.1 % (13-45); MEAN CORPUSCULAR HEMOGLOBIN 33.5 pg (27.0-33.4); MEAN CORPUSCULAR HGB CONC 34.4 g/dL (32.0-36.0); MEAN CORPUSCULAR VOLUME 97 fl (80-97); MONOCYTES % (AUTO) 8.9 % (3-13); RED CELL DISTRIBUTION WIDTH 13.3 % (11.5-14.0); SEGMENTED NEUTROPHILS % (AUTO) 78.2 % (42-78); TOTAL CELLS COUNTED % (AUTO) 100 %; WHITE BLOOD COUNT 10.4 10^3/uL (4.0-10.5)
[2017-06-17 07:04] LABS: PLATELET COUNT 58 10^3/uL (150-450)
[2017-06-17] MEDS ORDERED: AMPICILLIN SODIUM/SULBACTAM NA 3 GM in NORMAL SALINE 100 ML IV SCH ×2 (09:00→12:00)
--- NOTE | 2017-06-17 09:34 | PROGRESS NOTE E ---
Progress Note NAME: STEFF LIND : 1950 AGE: 66Y DATE: 06/17/2017 ROOM: 425 SUBJECTIVE: The patient is current lying in bed. His daughter is present at the bedside active in the patient's care. The patient admits to a dry cough but has been unable to produce any sputum. The patient states that he feels overall miserable. He has continued to be fevered. There has been no reported episodes of vomiting nor diarrhea. The patient's blood pressure has been in a good range. The patient is somewhat tachypneic but lung sounds are clear, and the patient does not voice any other concerns at this time. REVIEW OF SYSTEMS: Rest of the review of systems negative. MEDICATIONS: Have been reviewed. OBJECTIVE: GENERAL: The patient is a 66-year-old male who is awake, alert, and oriented to person, place, time, and situation. He is verbal, conversational, and does not appear to be in acute distress. VITAL SIGNS: Temperature is 101.8, pulse 106, blood pressure 132/52, oxygen saturation is 92% on 2 L nasal cannula. SKIN: The patient is not diaphoretic. HEENT: The patient does have eruption of zoster of his right face and nose, however, it appears redness and cellulitis has receded. Patient does have some lymphadenopathy of the neck. CARDIOVASCULAR: Heart is regular. There is no murmur or rub. CHEST: Diminished, symmetrical, unlabored. Some fine expiratory wheezes. ABDOMEN: Soft, nontender, nondistended. BACK: No CVA tenderness or sacral edema. EXTREMITIES: No clubbing, cyanosis, or edema. PSYCHIATRIC: Appropriate affect. Pleasant mood. DIAGNOSTICS: Lab values are as follows: Hematology obtained on 06/17/2017: WBCs are 8.9, hemoglobin is 10.4, hematocrit is 30.2, platelet count is 58,000. Chemistry obtained on 06/17/2017: Sodium is 138, potassium 3.9, chloride is 105, carbon dioxide 25, BUN 26, creatinine is 1.98, glucose 94, calcium is 8.6. IMPRESSION AND PLAN: 1. TRIGEMINAL HERPES ZOSTER. Will continue acyclovir. Given that he did have a cellulitis, was additionally added vancomycin to cover secondary infection. Given the patient's ongoing symptoms, have added Unasyn as well. 2. PSORIATIC ARTHRITIS. Have not continued the patient's chronic immunosuppressive agent at this time. 3. PSORIASIS. Overall stable. 4. THROMBOCYTOPENIA. CBC had improved. Will continue to follow. 5. DIABETES MELLITUS TYPE 2. Will continue the patient's home medication. 6. FEVER. Given the patient's ongoing fevers I am concerned about exposure and recommend isolation and the limitations of visitors. DISPOSITION: The patient is a FULL CODE. Pending patient's symptomatology and diagnostic findings, will reevaluate as needed. Time spent on this followup including assessment, plan, physical examination, patient education, review of records, and family meeting is 35 minutes. ADDENDUM: The patient was seen twice on rounds. The patient was noted to be increasingly more dyspnea. Chest x-ray was obtained, which did show multifocal pneumonia. The patient's antibiotics were covered with Zosyn just to expand coverage. I called and discussed the case with Infectious Disease, Annette Sinha MD, and no other recommendations were made. Recommendations were made to continue with supportive therapy and given the patient's change in breathing status, we will transfer him to [facility], place the patient on a monitor and follow. DICTATING PHYSICIAN: MACIEL XIE NP [id number] PHY#: [id number] ID: [id number] JOB#: [id number] ACCT: [id number] cc: > MTDD
[2017-06-17] MEDS ORDERED: FUROSEMIDE 40 MG TABLET PO SCH (10:00)
--- NOTE | 2017-06-17 10:06 | RADIOLOGY REPORT (SQ) ---
EXAM DESCRIPTION: CT FACIAL AREA WITHOUT COMPLETED DATE/TIME: 06/17/2017 9:18 am REASON FOR STUDY: Worsening facial cellulitis COMPARISON: CT facial bones 06/14/2017. TECHNIQUE: Noncontrasted images through the facial bones and orbits windowed for bone and soft tissu e. Additional coronal and sagittal reconstructed images reviewed. All images stored on PACS. All CT scanners at this facility use dose modulation, iterative reconstruction, and/or weight based d osing when appropriate to reduce radiation dose to as low as reasonably achievable (ALARA). [facility]: Dose Right [facility]: CareDose [facility]: Dose Right [facility]: Teradose 4D [facility]: [employer] RADIATION DOSE: CT Rad equipment meets quality standard of care and radiation dose reduction techniq ues were employed. CTDIvol: 30.4 mGy. DLP: 614 mGy-cm. mGy. LIMITATIONS: None. FINDINGS: FACIAL BONES: No acute fracture. ORBITS: Intact. No fracture. Symmetric intact globes and retroorbital soft tissues. PARANASAL SINUSES: No significant mucosal thickening or air-fluid levels. Maxillary sinus outlets ar e patent. SOFT TISSUES: Mild interval decrease in the diffuse soft tissue swelling along the right side of the face with mild overlying soft tissue thickening. Limited evaluation for abscess in the absence of in travenous contrast. INFERIOR BRAIN: Limited view. No acute findings. IMPRESSION: Mild interval decrease in the diffuse soft tissue swelling along the right side of the f renay with mild overlying soft tissue thickening. TECHNICAL DOCUMENTATION: JOB ID: [id number] [id number] Quality ID # [id number]: Final reports with documentation of one or more dose reduction techniques (e.g., Au tomated exposure control, adjustment of the mA and/or kV according to patient size, use of iterative reconstruction technique) 2010 [employer]- All Rights Reserved
[2017-06-17] MEDS: NYSTATIN/DEXAMETH/DIPHEN SUSP 120 ML PO SCH ×4 (10:08→22:07)
[2017-06-17] MEDS: LANSOPRAZOLE 30 MG TAB.RAP.DR PO SCH (10:13)
[2017-06-17] MEDS: SITAGLIPTIN PHOSPHATE 50 MG TABLET PO SCH ×2 (10:13→17:32)
[2017-06-17] MEDS: ACETAMINOPHEN 325 MG TABLET PO SCH ×4 (10:13→22:06)
[2017-06-17] MEDS: BENAZEPRIL HCL 20 MG TABLET PO SCH ×2 (10:13→22:09)
[2017-06-17] MEDS: TAMSULOSIN HCL 0.4 MG CAP.SR.24H PO SCH ×2 (10:14→22:05)
[2017-06-17] MEDS: DOCUSATE SODIUM 100 MG CAPSULE PO SCH (10:14)
[2017-06-17] MEDS: FLUTICASONE NASAL SPRAY 50 MCG/SPRY 120 SPRAY/16 GM NASL SCH ×2 (10:14→22:09)
[2017-06-17] MEDS: CETIRIZINE 10 MG TABLET PO SCH (11:08)
[2017-06-17] MEDS: DUTASTERIDE 0.5 MG CAPSULE PO SCH (11:08)
--- NOTE | 2017-06-17 11:37 | RADIOLOGY REPORT (SQ) ---
EXAM DESCRIPTION: CHEST PA/LAT COMPLETED DATE/TIME: 06/17/2017 10:24 am REASON FOR STUDY: Sputum, cough, hypoxia COMPARISON: 02/03/2016. EXAM PARAMETERS: NUMBER OF VIEWS: two views TECHNIQUE: Digital Frontal and Lateral radiographic views of the chest acquired. RADIATION DOSE: NA LIMITATIONS: none FINDINGS: LUNGS AND PLEURA: Interval development of bilateral pulmonary airspace or alveolar type in filtrates MEDIASTINUM AND HILAR STRUCTURES: No masses or contour abnormalities. HEART AND VASCULAR STRUCTURES: Heart is borderline in size due in part to expiratory technique. HARDWARE: Changes of prior cervical fusion. . IMPRESSION: Interval development of bilateral pulmonary alveolar infiltrates. Possibility of multif ocal pneumonia must be considered. TECHNICAL DOCUMENTATION: JOB ID: [id number] [id number] 2010 [employer]- All Rights Reserved
[2017-06-17] MEDS: VANCOMYCIN HCL 1,000 MG in DEXTROSE 5%-WATER 250 ML IV SCH ×2 (12:00→22:53)
[2017-06-17] MEDS ORDERED: NORMAL SALINE 500 ML IV ONE (16:28)
[2017-06-17] MEDS ORDERED: OSELTAMIVIR PHOSPHATE 75 MG CAPSULE PO ONE (16:45)
[2017-06-17] MEDS ORDERED: GUAIFENESIN 600 MG TABLET.SA PO ONE (17:00)
[2017-06-17] MEDS: PIPERACILLIN SODIUM/TAZOBACTAM 4.5 GM in NORMAL SALINE 100 ML IV SCH (18:56)
[2017-06-17] MEDS ORDERED: FUROSEMIDE INJ/PF 40 MG/4 ML SDV ONE (19:07)
[2017-06-17] MEDS ORDERED: FUROSEMIDE INJ/PF 40 MG/4 ML SDV IV ONE (19:07)
--- NOTE | 2017-06-17 20:05 | Progress Note ---
Provider Note Provider Note: Evaluated patient this afternoon patient appeared to be volume overloaded therefore patient was given 40 mg IV of Lasix. Chest x-ray has been ordered as well. Patient's daughter is requesting transfer due to not having ID. Contacted by then and spoke with vitamin to make them aware of the situation and they stated that they are currently on a waiting list and not able to accept the patient. The transfer line also stated that [facility] is full and is not able to accept transfers at this time.
[2017-06-17 20:55] LABS: ARTERIAL BLOOD H2CO3 0.97 mmol/L (1.05-1.35); ARTERIAL BLOOD HCO3 23.9 mmol/L (20-26); ARTERIAL BLOOD O2 SATURATION 94.5 % (94-98); ARTERIAL BLOOD PCO2 32.3 mmHg (35-45); ARTERIAL BLOOD PH 7.49 (7.35-7.45); ARTERIAL BLOOD PO2 65.5 mmHg (80-100); ARTERIAL BLOOD TOTAL CO2 24.9 mmol/L (23-27)
[2017-06-17 20:57] LABS: ARTERIAL BLOOD FIO2 5L
--- NOTE | 2017-06-17 21:40 | RADIOLOGY REPORT (SQ) ---
EXAM DESCRIPTION: CHEST SINGLE VIEW COMPLETED DATE/TIME: 06/17/2017 8:35 pm REASON FOR STUDY: Shortness of breath COMPARISON: 06/17/2017 EXAM PARAMETERS: NUMBER OF VIEWS: One view. TECHNIQUE: Single frontal radiographic view of the chest acquired. RADIATION DOSE: NA LIMITATIONS: None. FINDINGS: LUNGS AND PLEURA: Re- demonstration of diffuse airspace opacity with relative sparing of t he left apical lung. This is not significantly changed in the study interval. No pneumothorax. No pleural effusion. MEDIASTINUM AND HILAR STRUCTURES: Stable. HEART AND VASCULAR STRUCTURES: Stable. BONES: No acute findings. HARDWARE: None in the chest. OTHER: No other significant finding. IMPRESSION: Stable pulmonary examination demonstrating diffuse airspace opacities. No evidence of a dverse trend. TECHNICAL DOCUMENTATION: JOB ID: [id number] [employer]- All Rights Reserved
[2017-06-17] MEDS: GUAIFENESIN 600 MG TABLET.SA PO SCH (22:03)
[2017-06-17] MEDS: GABAPENTIN 400 MG CAPSULE PO SCH (22:04)
[2017-06-17] MEDS: ATORVASTATIN CALCIUM 10 MG TABLET PO SCH (22:05)
[2017-06-17] MEDS: OXYBUTYNIN CHLORIDE 5 MG TABLET PO SCH (22:06)
[2017-06-17] MEDS: TRAZODONE HCL 50 MG TABLET PO SCH (22:09)
[2017-06-17] MEDS ORDERED: VANCOMYCIN HCL INJ 1000 MG VIAL ONE (22:39)
[2017-06-18] MEDS: PIPERACILLIN SODIUM/TAZOBACTAM 4.5 GM in NORMAL SALINE 100 ML IV SCH ×2 (00:27→05:52)
[2017-06-18] MEDS: ACETAMINOPHEN 325 MG TABLET PO SCH ×6 (01:07→22:02)
[2017-06-18] MEDS: ACYCLOVIR SODIUM IV SCH ×3 (01:09→22:03)
[2017-06-18] MEDS: NORMAL SALINE IV SCH ×3 (01:09→22:03)
[2017-06-18 03:14] LABS: ARTERIAL BLOOD BASE EXCESS -0.2 mmol/L; ARTERIAL BLOOD FIO2 5L; ARTERIAL BLOOD H2CO3 1.14 mmol/L (1.05-1.35); ARTERIAL BLOOD HCO3 24.1 mmol/L (20-26); ARTERIAL BLOOD PH 7.42 (7.35-7.45); ARTERIAL BLOOD PO2 61.2 mmHg (80-100); ARTERIAL BLOOD TOTAL CO2 25.3 mmol/L (23-27)
--- NOTE | 2017-06-18 05:54 | PROGRESS NOTE E ---
Progress Note NAME: STEFF LIND : 1950 AGE: 66Y DATE: 06/17/2017 ROOM: 320 ADDENDUM: The patient was seen twice on rounds. The patient was noted to be increasingly more dyspnea. Chest x-ray was obtained, which did show multifocal pneumonia. The patient's antibiotics were covered with Zosyn just to expand coverage. I called and discussed the case with Infectious Disease, Annette Sinha MD, and no other recommendations were made. Recommendations were made to continue with supportive therapy and given the patient's change in breathing status, we will transfer him to [facility], place the patient on a monitor and follow. DICTATING PHYSICIAN: MACIEL XIE NP [id number] [facility]#: [id number] ID: [id number] JOB#: [id number] ACCT: [id number] cc: >
[2017-06-18] MEDS ORDERED: LEVALBUTEROL HCL NEB 1.25 MG/3 ML AMPUL NEB PRN (06:15)
[2017-06-18 06:38] LABS: ABSOLUTE EOSINOPHILS # (AUTO) 0.1 10^3/uL (0.0-0.6); ABSOLUTE LYMPHOCYTES (AUTO) 1.2 10^3/uL (0.5-4.7); ABSOLUTE MONOCYTES (AUTO) 0.4 10^3/uL (0.1-1.4); ABSOLUTE NEUT (AUTO) 8.2 10^3/uL (1.7-8.2); BASOPHILS % (AUTO) 0.4 % (0-2); HEMATOCRIT 30.9 % (37.9-51.0); HEMOGLOBIN 10.6 g/dL (13.5-17.0); LYMPHOCYTES % (AUTO) 11.9 % (13-45); MEAN CORPUSCULAR HEMOGLOBIN 33.1 pg (27.0-33.4); MEAN CORPUSCULAR HGB CONC 34.2 g/dL (32.0-36.0); MEAN CORPUSCULAR VOLUME 97 fl (80-97); MONOCYTES % (AUTO) 4.1 % (3-13); RED BLOOD COUNT 3.19 10^6/uL (4.35-5.55); RED CELL DISTRIBUTION WIDTH 13.3 % (11.5-14.0); SEGMENTED NEUTROPHILS % (AUTO) 82.6 % (42-78); TOTAL CELLS COUNTED % (AUTO) 100 %; WHITE BLOOD COUNT 9.9 10^3/uL (4.0-10.5)
[2017-06-18 06:46] LABS: ANION GAP 6 (5-19); BLOOD UREA NITROGEN 31 mg/dL (7-20); CALCIUM 8.1 mg/dL (8.4-10.2); CARBON DIOXIDE 26 mmol/L (22-30); CHLORIDE 105 mmol/L (98-107); GLUCOSE 91 mg/dL (75-110); POTASSIUM 3.8 mmol/L (3.6-5.0); SODIUM 136.7 mmol/L (137-145)
[2017-06-18 07:35] LABS: PLATELET COUNT 52 10^3/uL (150-450)
[2017-06-18 10:40] LABS: VANCOMYCIN,TROUGH 12.4 ug/mL (5.0-20.0)
[2017-06-18] MEDS: DUTASTERIDE 0.5 MG CAPSULE PO SCH (10:42)
[2017-06-18] MEDS: GUAIFENESIN 600 MG TABLET.SA PO SCH ×2 (10:42→22:02)
[2017-06-18] MEDS: BENAZEPRIL HCL 20 MG TABLET PO SCH ×2 (10:43→22:00)
[2017-06-18] MEDS: LANSOPRAZOLE 30 MG TAB.RAP.DR PO SCH (10:43)
[2017-06-18] MEDS: CETIRIZINE 10 MG TABLET PO SCH (10:43)
[2017-06-18] MEDS: DOCUSATE SODIUM 100 MG CAPSULE PO SCH (10:43)
[2017-06-18] MEDS: TAMSULOSIN HCL 0.4 MG CAP.SR.24H PO SCH ×2 (10:43→22:02)
[2017-06-18] MEDS: VANCOMYCIN HCL 1,000 MG in DEXTROSE 5%-WATER 250 ML IV SCH ×2 (10:44→23:42)
[2017-06-18] MEDS: NYSTATIN/DEXAMETH/DIPHEN SUSP 120 ML PO SCH ×4 (10:45→22:03)
[2017-06-18] MEDS: OSELTAMIVIR PHOSPHATE 75 MG CAPSULE PO SCH ×2 (10:45→18:44)
[2017-06-18] MEDS: SITAGLIPTIN PHOSPHATE 50 MG TABLET PO SCH (10:46)
--- NOTE | 2017-06-18 11:10 | PDOC PROGRESS REPORT ---
Subjective Progress Note for:: 06/18/17 Subjective:: Patient is a 66-year-old male who has underlying psoriatic arthritis. Prior to admission the patient received the zoster vaccination. He now has acute trigeminal herpes zoster. He likely also has a varicella pneumonia. The patient has been developing progressive hypoxic respiratory failure. Again, this is concerning for varicella pneumonia. Other etiologies could include hospital acquired pneumonia or community-acquired pneumonia. The patient was placed on BiPAP last evening. He is in positive fluid balance. He appeared to improve somewhat with Lasix. Today, I am going to transfer the patient to the intensive care unit for acute hypoxic respiratory failure and the need for noninvasive ventilation. The patient could require intubation with mechanical ventilation. Reason For Visit: TRIGEMINAL ZOSTER, THROMBOCYTOPENIA, RA Physical Exam Vital Signs: Temp Pulse Resp BP Pulse Ox 99.1 F 118 H 33 H 119/63 91 L 06/18/17 08:39 06/18/17 08:39 06/18/17 08:39 06/18/17 08:43 06/18/17 08:39 Intake & Output 06/17/17 06/18/17 06/19/17 06:59 06:59 06:59 Intake Total 1522 4838 Output Total 2550 2130 Balance -1028 2708 Weight 119 kg Additional comments: Patient is awake and alert. He does answer questions appropriately. He does have the BiPAP on his face. His facial appearance is noteworthy for crusted over lesions on the right side of his face. There does not appear to be any pus overlying these lesions. The patient's lungs demonstrate coarse rales throughout all lung saeed. His cardiac exam is distant but regular. I do not appreciate any murmurs, gallops or rubs. The abdomen is soft and flat. Bowel sounds are present in the lower quadrants. He does not have guarding or rebound noted. I did not appreciate any hepatosplenomegaly. The patient has generalized anasarca at 2+. Other than the lesions on his face I did not notice any acute skin lesions or rashes. Results Laboratory Results: 06/18/17 05:47 06/18/17 10:03 06/17/17 06/18/17 06/18/17 20:45 03:00 05:47 WBC 9.9 RBC 3.19 L Hgb 10.6 L Hct 30.9 L MCV 97 MCH 33.1 MCHC 34.2 RDW 13.3 Plt Count 52 L Seg Neutrophils % 82.6 H Lymphocytes % 11.9 L Monocytes % 4.1 Eosinophils % 1.0 Basophils % 0.4 Absolute Neutrophils 8.2 Absolute Lymphocytes 1.2 Absolute Monocytes 0.4 Absolute Eosinophils 0.1 Absolute Basophils 0.0 Carbonic Acid 0.97 L 1.14 HCO3/H2CO3 Ratio 24:1 21:1 ABG pH 7.49 H 7.42 ABG pCO2 32.3 L 38.0 ABG pO2 65.5 L 61.2 L ABG HCO3 23.9 24.1 ABG O2 Saturation 94.5 92.0 L ABG Base Excess 1.0 -0.2 FiO2 5L 5L Sodium Potassium Chloride Carbon Dioxide Anion Gap BUN Creatinine Est GFR ( Amer) Est GFR (Non-Af Amer) Glucose Calcium 06/18/17 06/18/17 05:47 10:03 WBC RBC Hgb Hct MCV MCH MCHC RDW Plt Count Seg Neutrophils % Lymphocytes % Monocytes % Eosinophils % Basophils % Absolute Neutrophils Absolute Lymphocytes Absolute Monocytes Absolute Eosinophils Absolute Basophils Carbonic Acid HCO3/H2CO3 Ratio ABG pH ABG pCO2 ABG pO2 ABG HCO3 ABG O2 Saturation ABG Base Excess FiO2 Sodium 136.7 L Potassium 3.8 Chloride 105 Carbon Dioxide 26 Anion Gap 6 BUN 31 H Creatinine 1.93 H 1.90 H Est GFR ( Amer) 42 L 43 L Est GFR (Non-Af Amer) 35 L 36 L Glucose 91 Calcium 8.1 L 06/15/17 06/16/17 06:15 04:12 NT-Pro-B Natriuret Pep 2700 H 4120 H Impressions: Chest X-Ray 06/17/17 00:00 IMPRESSION: Stable pulmonary examination demonstrating diffuse airspace opacities. No evidence of adverse trend. Facial Bones CT 06/17/17 00:00 IMPRESSION: Mild interval decrease in the diffuse soft tissue swelling along the right side of the face with mild overlying soft tissue thickening. Assessment & Plan - Diagnosis (1) Psoriatic arthritis Is this a current diagnosis for this admission?: Yes Plan: Continue to hold immune suppressive drugs due to systemic infection. (2) Cellulitis Qualifiers: Site of cellulitis: face Qualified Code(s): L03.211 - Cellulitis of face Is this a current diagnosis for this admission?: Yes Plan: It is unclear if the patient has a superinfection, but antibiotics have been added. This is prudent. Broad-spectrum antibiotics will be continued for now. (3) DM2 (diabetes mellitus, type 2) Qualifiers: Diabetes mellitus complication status: with unspecified complications Diabetes mellitus tank terminal gauger insulin use: without fci use Qualified Code( s): E11.8 - Type 2 diabetes mellitus with unspecified complications Is this a current diagnosis for this admission?: Yes Plan: Stop Sitagliptin and begin sliding scale insulin. Renal function is worsening. (4) Thrombocytopenia Is this a current diagnosis for this admission?: Yes Plan: Stable. Patient presented with thrombocytopenia. Therefore, hit is not in the differential diagnosis. This is likely associated with sepsis and the acute infection. DIC labs will be ordered. (5) Trigeminal herpes zoster Is this a current diagnosis for this admission?: Yes Plan: Continue acyclovir (6) Acute respiratory failure with hypoxia Is this a current diagnosis for this admission?: Yes Plan: The patient is currently on noninvasive ventilation with BiPAP. He is going to be transferred to the intensive care unit for closer monitoring. If needed, we may need to intubate the patient for mechanical ventilation. The patient has diffuse infiltrates on chest x-ray that are worrisome for an acute infectious etiology. I think pulmonary edema is less likely, however, I do think the patient has a component of volume overload. Lasix has been initiated as well. (7) Acute kidney failure Is this a current diagnosis for this admission?: Yes Plan: We need to avoid nephrotoxins. We need to follow labs closely. Patient was on Mobic. This was discontinued. I also discontinue the sitagliptin for now. We need to watch her labs and re-dose antibiotics as determined by creatinine clearance. - Time Time Spent with patient: 35 or more minutes - Inpatient Certification Medical Necessity: Need Close Monitoring Due to Risk of Patient Decompensation - The patient is gravely ill at present. He requires intensive care unit monitoring. He is not stable for discharge at this time., Need for IV Antibiotics, Risk of Complication if Not Cared For in Hospital
[2017-06-18] MEDS ORDERED: DEXTROSE 40% GEL 15 GM TUBE PO PRN ×2 (11:18)
[2017-06-18] MEDS ORDERED: INSULIN LISPRO 100 UNIT/ML 3 ML VIAL SUBCUT PRN (11:18)
[2017-06-18] MEDS ORDERED: GLUCAGON,HUMAN RECOMB 1 MG INJ IM PRN (11:18)
[2017-06-18] MEDS ORDERED: DEXTROSE 50%-WATER 25 GM/50 ML DISP.SYRIN IV PRN ×2 (11:18)
[2017-06-18 11:47] LABS: HEMATOCRIT 32.6 % (37.9-51.0); INTERNATIONAL RATION (INR) 1.24; MEAN CORPUSCULAR HEMOGLOBIN 32.8 pg (27.0-33.4); MEAN CORPUSCULAR HGB CONC 33.8 g/dL (32.0-36.0); MEAN CORPUSCULAR VOLUME 97 fl (80-97); PROTHROMBIN TIME 16.4 SEC (11.4-15.4); RED BLOOD COUNT 3.35 10^6/uL (4.35-5.55); RED CELL DISTRIBUTION WIDTH 13.5 % (11.5-14.0); WHITE BLOOD COUNT 8.5 10^3/uL (4.0-10.5)
[2017-06-18 11:48] LABS: FIBRINOGEN 478 mg/dL (209-497); PARTIAL THROMBOPLASTIN TIME 35.4 SEC (23.5-35.8)
--- NOTE | 2017-06-18 11:57 | EKG REPORT ---
SEVERITY:- ABNORMAL ECG - SINUS TACHYCARDIA PAIRED VENTRICULAR PREMATURE COMPLEXES CONSIDER ANTERIOR INFARCT BORDERLINE T ABNORMALITIES, INFERIOR LEADS : Confirmed by: Christie Schneider MD 18-Jun-2017 11:56:59
[2017-06-18 12:16] LABS: PLATELET COUNT 59 10^3/uL (150-450)
[2017-06-18] MEDS ORDERED: FUROSEMIDE INJ/PF 40 MG/4 ML SDV IV ONE (12:30)
[2017-06-18] MEDS ORDERED: PIPERACILLIN SODIUM/TAZOBACTAM 2.25 GM in NORMAL SALINE 50 ML IV ONE (12:30)
[2017-06-18] MEDS: FLUTICASONE NASAL SPRAY 50 MCG/SPRY 120 SPRAY/16 GM NASL SCH ×2 (12:37→22:01)
[2017-06-18] MEDS ORDERED: POTASSI CL 20 MEQ/50 ML RIDER 20 MEQ/50 ML RTUPB IV ONE (13:00)
[2017-06-18] MEDS ORDERED: POTASSIUM CHLORIDE 20 MEQ/15 ML UDCUP PO ONE (13:30)
[2017-06-18] MEDS: PIPERACILLIN SODIUM/TAZOBACTAM 2.25 GM in NORMAL SALINE 50 ML IV SCH ×2 (18:45→23:42)
[2017-06-18 20:16] LABS: ARTERIAL BLOOD BASE EXCESS 0.6 mmol/L; ARTERIAL BLOOD FIO2 50%; ARTERIAL BLOOD H2CO3 1.07 mmol/L (1.05-1.35); ARTERIAL BLOOD HCO3 24.3 mmol/L (20-26); ARTERIAL BLOOD O2 SATURATION 96.9 % (94-98); ARTERIAL BLOOD PCO2 35.5 mmHg (35-45); ARTERIAL BLOOD PH 7.45 (7.35-7.45); ARTERIAL BLOOD PO2 84.9 mmHg (80-100); ARTERIAL BLOOD TOTAL CO2 25.4 mmol/L (23-27)
[2017-06-18] MEDS: ATORVASTATIN CALCIUM 10 MG TABLET PO SCH (21:59)
[2017-06-18] MEDS: TRAZODONE HCL 50 MG TABLET PO SCH (22:00)
[2017-06-18] MEDS: OXYBUTYNIN CHLORIDE 5 MG TABLET PO SCH (22:01)
[2017-06-18] MEDS: GABAPENTIN 400 MG CAPSULE PO SCH (22:01)
[2017-06-18] MEDS ORDERED: VANCOMYCIN HCL INJ 1000 MG VIAL ONE (22:47)
[2017-06-19 03:24] LABS: ARTERIAL BLOOD BASE EXCESS 0.1 mmol/L; ARTERIAL BLOOD H2CO3 0.97 mmol/L (1.05-1.35); ARTERIAL BLOOD HCO3 23.1 mmol/L (20-26); ARTERIAL BLOOD O2 SATURATION 89.2 % (94-98); ARTERIAL BLOOD PCO2 32.1 mmHg (35-45); ARTERIAL BLOOD PH 7.48 (7.35-7.45); ARTERIAL BLOOD PO2 51.5 mmHg (80-100); ARTERIAL BLOOD TOTAL CO2 24.1 mmol/L (23-27)
[2017-06-19 03:25] LABS: ARTERIAL BLOOD FIO2 50%
[2017-06-19] MEDS: ACETAMINOPHEN 325 MG TABLET PO SCH ×2 (03:45→06:03)
[2017-06-19 03:52] LABS: HEMATOCRIT 29.7 % (37.9-51.0); HEMOGLOBIN 10.1 g/dL (13.5-17.0); MEAN CORPUSCULAR HEMOGLOBIN 33.1 pg (27.0-33.4); MEAN CORPUSCULAR HGB CONC 34.1 g/dL (32.0-36.0); MEAN CORPUSCULAR VOLUME 97 fl (80-97); RED BLOOD COUNT 3.06 10^6/uL (4.35-5.55); RED CELL DISTRIBUTION WIDTH 13.4 % (11.5-14.0); WHITE BLOOD COUNT 7.5 10^3/uL (4.0-10.5)
[2017-06-19 04:01] LABS: ALANINE AMINOTRANSFERASE 40 U/L (21-72); ALBUMIN 2.7 g/dL (3.5-5.0); ALKALINE PHOSPHATASE 57 U/L (38-126); ANION GAP 7 (5-19); ASPARTATE AMINO TRANSFERASE 98 U/L (17-59); BILIRUBIN,DIRECT 1.4 mg/dL (0.0-0.4); BILIRUBIN,TOTAL 1.9 mg/dL (0.2-1.3); BLOOD UREA NITROGEN 37 mg/dL (7-20); CALCIUM 8.3 mg/dL (8.4-10.2); CARBON DIOXIDE 28 mmol/L (22-30); CHLORIDE 106 mmol/L (98-107); GLUCOSE 101 mg/dL (75-110); POTASSIUM 3.8 mmol/L (3.6-5.0); SODIUM 140.5 mmol/L (137-145); TOTAL PROTEIN 6.1 g/dL (6.3-8.2)
[2017-06-19 04:03] LABS: PLATELET COUNT 71 10^3/uL (150-450)
[2017-06-19 04:12] LABS: MAGNESIUM 2.1 mg/dL (1.6-2.3); PHOSPHORUS 3.1 mg/dL (2.5-4.5)
[2017-06-19 04:14] LABS: CREATINE KINASE MB 2.1 ng/mL (<4.55)
[2017-06-19 04:16] LABS: TROPONIN I 0.036 ng/mL
[2017-06-19 04:18] LABS: ABSOLUTE LYMPHOCYTES# (MANUAL) 0.9 10^3/uL (0.5-4.7); ABSOLUTE MONOCYTES # (MANUAL) 0.2 10^3/uL (0.1-1.4); ABSOLUTE NEUTROPHILS# (MANUAL) 6.2 10^3/uL (1.7-8.2); BAND NEUTROPHILS % (MANUAL) 1 % (3-5); BASOPHILS % (MANUAL) 0 % (0-2); EOSINOPHILS % (MANUAL) 2 % (0-6); LYMPHOCYTES % (MANUAL) 12 % (13-45); MONOCYTES % (MANUAL) 3 % (3-13); NUCLEATED RED BLOOD CELLS 1 /100 WBC (0); SEGMENTED NEUTROPHILS % (MAN) 82 % (42-78); TOTAL CELLS COUNTED 100
[2017-06-19 04:34] LABS: PLATELET COMMENT DECREASED; PLATELET LARGE PRESENT; TOXIC GRANULATION 1+
[2017-06-19] MEDS ORDERED: PROPOFOL 100 ML IV ONE (05:06)
[2017-06-19] MEDS ORDERED: MORPHINE SULFATE 10 MG/ML INJ ONE (05:32)
[2017-06-19] MEDS ORDERED: PROPOFOL INJ 200 MG/20 ML VIAL IV ONE (05:35)
[2017-06-19] MEDS ORDERED: PHARMACY COMMUNICATION ORDER MC NR (05:45)
[2017-06-19] MEDS: PIPERACILLIN SODIUM/TAZOBACTAM 2.25 GM in NORMAL SALINE 50 ML IV SCH ×3 (05:59→17:58)
[2017-06-19] MEDS: NORMAL SALINE IV SCH ×2 (06:01→14:29)
[2017-06-19] MEDS: ACYCLOVIR SODIUM IV SCH ×2 (06:01→14:29)
[2017-06-19] MEDS ORDERED: ACETAMINOPHEN SOLN 325 MG/10.15 ML UDCUP ONE (06:02)
--- NOTE | 2017-06-19 06:02 | RADIOLOGY REPORT (SQ) ---
EXAM DESCRIPTION: CHEST SINGLE VIEW CLINICAL HISTORY: ETT Placement COMPARISON: 06/17/2017 FINDINGS: Single frontal view of the chest. Endotracheal tube with tip at the level of the clavicles. NG tube with tip below the diaphragm. Heart is not definitely enlarged. Very low lung volumes. Leads overlie the chest. Diffuse bilateral airspace opacities. Postoperative change of the cervical spine. No definite pneumothorax identified. No new osseous abnormalities. Upper abdominal soft tissues unremarkable. IMPRESSION: 1. Endotracheal tube and NG tube in appropriate position. Diffuse bilateral airspace opacities are unchanged.
[2017-06-19] MEDS ORDERED: PROPOFOL 100 ML IV PRN (06:11)
[2017-06-19] MEDS ORDERED: MORPHINE SULFATE 10 MG/ML INJ IV PRN (06:13)
[2017-06-19] MEDS ORDERED: NORMAL SALINE 500 ML IV ONE (07:00)
[2017-06-19] MEDS ORDERED: PHENYLEPHRINE HCL INJ/PF 10 MG/1 ML SDV ONE (08:13)
[2017-06-19] MEDS ORDERED: DEXTROSE 40% GEL 15 GM TUBE NG PRN ×2 (08:30)
[2017-06-19] MEDS ORDERED: ZOLPIDEM TARTRATE 5 MG TABLET NG PRN (08:30)
[2017-06-19] MEDS ORDERED: OXYCODONE-ACETAMINOPHEN 5-325 MG TABLET NG PRN (08:30)
[2017-06-19] MEDS ORDERED: NORMAL SALINE 1000 ML 1,000 ML IV ONE (08:45)
--- NOTE | 2017-06-19 09:16 | RADIOLOGY REPORT (SQ) ---
EXAM DESCRIPTION: CHEST SINGLE VIEW COMPLETED DATE/TIME: 06/19/2017 8:59 am REASON FOR STUDY: CENTRAL LINE PLACEMENT COMPARISON: 06/19/2017, 06/17/2017 EXAM PARAMETERS: NUMBER OF VIEWS: One view. TECHNIQUE: Single frontal radiographic view of the chest acquired. RADIATION DOSE: NA LIMITATIONS: None. FINDINGS: LUNGS AND PLEURA: Extensive bilateral airspace disease with air bronchograms essentially u nchanged. MEDIASTINUM AND HILAR STRUCTURES: No masses. Contour normal. HEART AND VASCULAR STRUCTURES: Heart normal in size. Normal vasculature. BONES: No acute findings. HARDWARE: Interval insertion of a central line on the right with the tip projected over the right atr ium. No pneumothorax. Endotracheal and NG tubes remain in appropriate positions. OTHER: No other significant finding. IMPRESSION: Extensive interstitial E stable bilateral alveolar infiltrates. Interval insertion of a central line on the right. Tip projected over the right atrium. No pneumothorax. Endotracheal and NG tubes remain in proper and unchanged position. TECHNICAL DOCUMENTATION: JOB ID: [id number] [employer]- All Rights Reserved
[2017-06-19] MEDS ORDERED: MIDAZOLAM HCL 50 MG/100 ML RTUINJ IV PRN (09:44)
[2017-06-19] MEDS: ROCURONIUM BROMIDE INJ 50 MG/5 ML VIAL IV PRN (09:45)
[2017-06-19] MEDS ORDERED: NORMAL SALINE INJ/PF 0.9% 10 ML SDV IV PRN (09:45)
[2017-06-19] MEDS ORDERED: BENAZEPRIL HCL 20 MG TABLET NG SCH (10:00)
[2017-06-19] MEDS ORDERED: CETIRIZINE HCL ORAL SOLN 5 MG/5 ML UDCUP NG SCH (10:00)
[2017-06-19] MEDS ORDERED: FUROSEMIDE INJ/PF 40 MG/4 ML SDV IV SCH (10:00)
[2017-06-19] MEDS ORDERED: OSELTAMIVIR PHOSPHATE 75 MG CAPSULE NG SCH (10:00)
--- NOTE | 2017-06-19 10:00 | PDOC CONSULTATION ---
Consultation Consult Date: 06/18/17 Attending physician:: EBONY BARNES Consult reason:: resp failure History of Present Illness Admission Date/PCP: 06/15/17 03:50 NEGRO ALANIS MD History of Present Illness: STEFF LIND is a 66 year old male who recently had received shingles vaccine as many of his family members had come down with the shingles. 2 days ago he developed pustules on his right cheek which became more painful and so presented to the emergency room. Here he was felt to have trigeminal zoster and was started on antiviral therapy. He was also felt to have a component of bacterial superinfection and was also given antibiotics. Past Medical History Cardiac Medical History: Reports: Hyperlipidema, Hypertension Denies: Myocardial Infarction Pulmonary Medical History: Reports: Bronchitis Denies: Asthma Neurological Medical History: Denies: Seizures Endocrine Medical History: Reports: Diabetes Mellitus Type 2 GI Medical History: Reports: Gastroesophageal Reflux Disease Denies: Hepatitis, Hiatal Hernia Musculoskeltal Medical History: Reports: Arthritis - RA, Gout Skin Medical History: Reports: Psoriasis Hematology: Denies: Anemia, Sickle Cell Disease Past Surgical History Past Surgical History: Reports: Cholecystectomy, Orthopedic Surgery - Cervical spinal fusion Denies: Pacemaker Social History Information Source: [facility] Records Lives with: Spouse/Significant other Smoking Status: Never Smoker Frequency of Alcohol Use: None Hx Recreational Drug Use: No Drugs: None Hx Prescription Drug Abuse: No - Advance Directive Resuscitation Status: Full Code Family History Family History: Arthritis, CAD, CVA, Hyperlipidemia, Hypertension, Malignancy Parental Family History Reviewed: No Children Family History Reviewed: No Sibling(s) Family History Reviewed.: No Medication/Allergy Home Medications: Benazepril HCl [Lotensin 20 mg Tablet] 20 mg PO Q12 06/15/17 Cetirizine HCl [Zyrtec 10 mg Tablet] 10 mg PO DAILY 06/15/17 Dutasteride [Avodart] 0.5 mg PO DAILY 06/15/17 Ergocalciferol (Vitamin D2) [Drisdol 50,000 Unit (1.25MG) Capsule] 50,000 unit PO WE@1000 06/15/17 Esomeprazole Mag Trihydrate [Nexium] 40 mg PO DAILY 06/15/17 Furosemide [Lasix 40 mg Tablet] 40 mg PO QAMP PRN 06/15/17 Gabapentin [Neurontin 400 mg Capsule] 1,200 mg PO QHS 06/15/17 Meloxicam [Mobic] 7.5 mg PO DAILYP PRN 06/15/17 Oxybutynin Chloride [Oxybutynin Chloride ER] 10 mg PO QHS 06/15/17 Pravastatin Sodium [Pravachol] 40 mg PO QHS 06/15/17 Sitagliptin Phos/Metformin HCl [Janumet 50-500 mg Tablet] 1 tab PO BIDBS Tamsulosin HCl [Flomax 0.4 mg Cap.sr] 0.4 mg PO Q12 06/15/17 Tofacitinib Citrate [Xeljanz] 5 mg PO Q12 06/15/17 Trazodone HCl [Desyrel 50 mg Tablet] 50 mg PO QHS 06/15/17 Allergies/Adverse Reactions: No Known Allergies Allergy (Verified 06/14/17 18:54) Review of Systems ROS unobtainable: Due to endotracheal tube Physical Exam Vital Signs: Temp Pulse Resp BP Pulse Ox 98.7 F 105 H 35 H 112/54 L 98 06/18/17 17:00 06/18/17 15:47 06/18/17 18:12 06/18/17 18:12 06/18/17 18:12 Intake & Output 06/17/17 06/18/17 06/19/17 06:59 06:59 06:59 Intake Total 1522 4838 420 Output Total 2550 2130 1055 Balance -1028 2708 -635 Weight 119 kg General appearance: PRESENT: no acute distress, disheveled, obese, well- developed. ABSENT: cooperative, mild distress, morbidly obese, severe distress Head exam: PRESENT: atraumatic, normocephalic Eye exam: PRESENT: conjunctiva pale. ABSENT: conjunctival injection, conjunctiva pink, nystagmus, periorbital swelling, scleral icterus Mouth exam: PRESENT: dry mucosa, neck supple, tongue midline, other - ET tube in place. ABSENT: laceration, moist Neck exam: ABSENT: carotid bruit, JVD, lymphadenopathy, thyromegaly, tracheal deviation, tracheostomy Respiratory exam: PRESENT: decreased breath sounds, prolonged expiratory phas, rales, rhonchi, symmetrical, tachypnea, unlabored, wheezes. ABSENT: accessory muscle use, chest wall tenderness, clear to auscultation davin, crackles, retraction, stridor Cardiovascular exam: PRESENT: RRR, +S1, +S2, tachycardia Pulses: PRESENT: normal radial pulses GI/Abdominal exam: PRESENT: diminished bowel sounds, soft Gentrourinary exam: PRESENT: indwelling catheter Extremities exam: ABSENT: clubbing Musculoskeletal exam: ABSENT: ambulatory, deformity, dislocation Neurological exam: ABSENT: alert, awake, oriented to person Skin exam: PRESENT: dry, warm Results Laboratory Results: 06/18/17 11:29 06/18/17 11:29 06/17/17 06/18/17 06/18/17 20:45 03:00 05:47 WBC 9.9 RBC 3.19 L Hgb 10.6 L Hct 30.9 L MCV 97 MCH 33.1 MCHC 34.2 RDW 13.3 Plt Count 52 L Seg Neutrophils % 82.6 H Lymphocytes % 11.9 L Monocytes % 4.1 Eosinophils % 1.0 Basophils % 0.4 Absolute Neutrophils 8.2 Absolute Lymphocytes 1.2 Absolute Monocytes 0.4 Absolute Eosinophils 0.1 Absolute Basophils 0.0 Carbonic Acid 0.97 L 1.14 HCO3/H2CO3 Ratio 24:1 21:1 ABG pH 7.49 H 7.42 ABG pCO2 32.3 L 38.0 ABG pO2 65.5 L 61.2 L ABG HCO3 23.9 24.1 ABG O2 Saturation 94.5 92.0 L ABG Base Excess 1.0 -0.2 FiO2 5L 5L Sodium Potassium Chloride Carbon Dioxide Anion Gap BUN Creatinine Est GFR ( Amer) Est GFR (Non-Af Amer) Glucose Calcium 06/18/17 06/18/17 06/18/17 05:47 10:03 11:29 WBC 8.5 RBC 3.35 L Hgb 11.0 L Hct 32.6 L MCV 97 MCH 32.8 MCHC 33.8 RDW 13.5 Plt Count 59 L Seg Neutrophils % Lymphocytes % Monocytes % Eosinophils % Basophils % Absolute Neutrophils Absolute Lymphocytes Absolute Monocytes Absolute Eosinophils Absolute Basophils Carbonic Acid HCO3/H2CO3 Ratio ABG pH ABG pCO2 ABG pO2 ABG HCO3 ABG O2 Saturation ABG Base Excess FiO2 Sodium 136.7 L Potassium 3.8 Chloride 105 Carbon Dioxide 26 Anion Gap 6 BUN 31 H Creatinine 1.93 H 1.90 H Est GFR ( Amer) 42 L 43 L Est GFR (Non-Af Amer) 35 L 36 L Glucose 91 Calcium 8.1 L 06/18/17 11:29 WBC RBC Hgb Hct MCV MCH MCHC RDW Plt Count Seg Neutrophils % Lymphocytes % Monocytes % Eosinophils % Basophils % Absolute Neutrophils Absolute Lymphocytes Absolute Monocytes Absolute Eosinophils Absolute Basophils Carbonic Acid HCO3/H2CO3 Ratio ABG pH ABG pCO2 ABG pO2 ABG HCO3 ABG O2 Saturation ABG Base Excess FiO2 Sodium Potassium Chloride Carbon Dioxide Anion Gap BUN Creatinine 1.83 H Est GFR ( Amer) 45 L Est GFR (Non-Af Amer) 37 L Glucose Calcium 06/15/17 06/16/17 06:15 04:12 NT-Pro-B Natriuret Pep 2700 H 4120 H Impressions: Chest X-Ray 06/17/17 00:00 IMPRESSION: Stable pulmonary examination demonstrating diffuse airspace opacities. No evidence of adverse trend. Facial Bones CT 06/17/17 00:00 IMPRESSION: Mild interval decrease in the diffuse soft tissue swelling along the right side of the face with mild overlying soft tissue thickening. Assessment & Plan - Diagnosis (1) Acute respiratory failure with hypoxia Is this a current diagnosis for this admission?: Yes Plan: intubated adequate but difficult oxygenation (2) Psoriatic arthritis Is this a current diagnosis for this admission?: Yes Plan: immunocompromised (3) Rheumatoid arthritis Qualifiers: Rheumatoid arthritis location: unspecified site Rheumatoid factor presence : unspecified presence Qualified Code(s): M06.9 - Rheumatoid arthritis, unspecified Is this a current diagnosis for this admission?: Yes Plan: immunocompromised (4) Thrombocytopenia Is this a current diagnosis for this admission?: Yes (5) Trigeminal herpes zoster Is this a current diagnosis for this admission?: Yes - Time Total Critical Time (Minutes): 60
--- NOTE | 2017-06-19 10:04 | PDOC PROGRESS REPORT ---
Subjective Progress Note for:: 06/19/17 Subjective:: intubated sedated Reason For Visit: TRIGEMINAL ZOSTER, THROMBOCYTOPENIA, RA Physical Exam Vital Signs: Temp Pulse Resp BP Pulse Ox 101.7 F H 113 H 32 H 79/47 L 95 06/19/17 08:00 06/19/17 08:00 06/19/17 08:00 06/19/17 08:00 06/19/17 08:20 Intake & Output 06/18/17 06/19/17 06/20/17 06:59 06:59 06:59 Intake Total 4838 1384 Output Total 2130 1780 10 Balance 2708 -396 -10 Weight 120.5 kg General appearance: PRESENT: no acute distress, disheveled, obese. ABSENT: cooperative, mild distress, morbidly obese, severe distress Head exam: PRESENT: atraumatic, normocephalic Eye exam: PRESENT: conjunctiva pale. ABSENT: conjunctival injection, conjunctiva pink, nystagmus, periorbital swelling Mouth exam: PRESENT: dry mucosa, neck supple, tongue midline, other - ET tube. ABSENT: laceration, moist Neck exam: ABSENT: carotid bruit, JVD, lymphadenopathy, thyromegaly, tracheal deviation, tracheostomy Respiratory exam: PRESENT: crackles, decreased breath sounds, prolonged expiratory phas, rhonchi, symmetrical, tachypnea, unlabored, wheezes. ABSENT: accessory muscle use, chest wall tenderness, clear to auscultation davin, rales, retraction, stridor Cardiovascular exam: PRESENT: RRR, +S1, +S2, tachycardia Pulses: PRESENT: normal radial pulses GI/Abdominal exam: PRESENT: diminished bowel sounds, soft Extremities exam: ABSENT: clubbing, joint swelling Musculoskeletal exam: ABSENT: ambulatory, deformity, dislocation Neurological exam: ABSENT: alert, awake, oriented to person Skin exam: PRESENT: dry, warm Results Laboratory Results: 06/19/17 03:37 06/19/17 03:37 06/18/17 06/18/17 06/18/17 10:03 11:29 11:29 WBC 8.5 RBC 3.35 L Hgb 11.0 L Hct 32.6 L MCV 97 MCH 32.8 MCHC 33.8 RDW 13.5 Plt Count 59 L Seg Neutrophils % Lymphocytes % Monocytes % Eosinophils % Basophils % Absolute Neutrophils Absolute Lymphocytes Absolute Monocytes Absolute Eosinophils Absolute Basophils Carbonic Acid HCO3/H2CO3 Ratio ABG pH ABG pCO2 ABG pO2 ABG HCO3 ABG O2 Saturation ABG Base Excess FiO2 Sodium Potassium Chloride Carbon Dioxide Anion Gap BUN Creatinine 1.90 H 1.83 H Est GFR ( Amer) 43 L 45 L Est GFR (Non-Af Amer) 36 L 37 L Glucose Calcium Phosphorus Magnesium Total Bilirubin AST ALT Alkaline Phosphatase Total Protein Albumin 06/18/17 06/19/17 06/19/17 20:05 03:15 03:37 WBC 7.5 RBC 3.06 L Hgb 10.1 L Hct 29.7 L MCV 97 MCH 33.1 MCHC 34.1 RDW 13.4 Plt Count 71 L Seg Neutrophils % Not Reportable Lymphocytes % Not Reportable Monocytes % Not Reportable Eosinophils % Not Reportable Basophils % Not Reportable Absolute Neutrophils Not Reportable Absolute Lymphocytes Not Reportable Absolute Monocytes Not Reportable Absolute Eosinophils Not Reportable Absolute Basophils Not Reportable Carbonic Acid 1.07 0.97 L HCO3/H2CO3 Ratio 22:1 23:1 ABG pH 7.45 7.48 H ABG pCO2 35.5 32.1 L ABG pO2 84.9 51.5 L ABG HCO3 24.3 23.1 ABG O2 Saturation 96.9 89.2 L ABG Base Excess 0.6 0.1 FiO2 50% 50% Sodium Potassium Chloride Carbon Dioxide Anion Gap BUN Creatinine Est GFR ( Amer) Est GFR (Non-Af Amer) Glucose Calcium Phosphorus Magnesium Total Bilirubin AST ALT Alkaline Phosphatase Total Protein Albumin 06/19/17 06/19/17 03:37 03:37 WBC RBC Hgb Hct MCV MCH MCHC RDW Plt Count Seg Neutrophils % Lymphocytes % Monocytes % Eosinophils % Basophils % Absolute Neutrophils Absolute Lymphocytes Absolute Monocytes Absolute Eosinophils Absolute Basophils Carbonic Acid HCO3/H2CO3 Ratio ABG pH ABG pCO2 ABG pO2 ABG HCO3 ABG O2 Saturation ABG Base Excess FiO2 Sodium 140.5 Potassium 3.8 Chloride 106 Carbon Dioxide 28 Anion Gap 7 BUN 37 H Creatinine 1.99 H Est GFR ( Amer) 41 L Est GFR (Non-Af Amer) 34 L Glucose 101 Calcium 8.3 L Phosphorus 3.1 Magnesium 2.1 Total Bilirubin 1.9 H AST 98 H ALT 40 Alkaline Phosphatase 57 Total Protein 6.1 L Albumin 2.7 L 06/15/17 06/16/17 06/19/17 06:15 04:12 03:37 Creatine Kinase 318 H CK-MB (CK-2) Troponin I NT-Pro-B Natriuret Pep 2700 H 4120 H 06/19/17 03:37 Creatine Kinase CK-MB (CK-2) 2.10 Troponin I 0.036 NT-Pro-B Natriuret Pep 2920 H Impressions: Facial Bones CT 06/17/17 00:00 IMPRESSION: Mild interval decrease in the diffuse soft tissue swelling along the right side of the face with mild overlying soft tissue thickening. Chest X-Ray 06/19/17 05:40 IMPRESSION: 1. Endotracheal tube and NG tube in appropriate position. Diffuse bilateral airspace opacities are unchanged. Assessment & Plan - Diagnosis (1) Acute respiratory failure with hypoxia Is this a current diagnosis for this admission?: Yes Plan: intubated adequate but difficult oxygenation (2) Psoriatic arthritis Is this a current diagnosis for this admission?: Yes Plan: immunocompromised (3) Rheumatoid arthritis Qualifiers: Rheumatoid arthritis location: unspecified site Rheumatoid factor presence : unspecified presence Qualified Code(s): M06.9 - Rheumatoid arthritis, unspecified Is this a current diagnosis for this admission?: Yes Plan: immunocompromised (4) Thrombocytopenia Is this a current diagnosis for this admission?: Yes Plan: persist (5) Trigeminal herpes zoster Is this a current diagnosis for this admission?: Yes - Time Total Critical Time (Minutes): 40
[2017-06-19] MEDS ORDERED: NOREPINEPHRINE BITARTRATE INJ/PF 4 MG/4 ML SDV IV ONE (10:11)
[2017-06-19] MEDS: NORMAL SALINE 500 ML with ROCURONIUM BROMIDE 500 MG IV PRN ×4 (10:20→19:07)
[2017-06-19 10:22] LABS: ARTERIAL BLOOD BASE EXCESS -2.4 mmol/L; ARTERIAL BLOOD H2CO3 1.42 mmol/L (1.05-1.35); ARTERIAL BLOOD HCO3 23.8 mmol/L (20-26); ARTERIAL BLOOD O2 SATURATION 93.3 % (94-98); ARTERIAL BLOOD PCO2 47.2 mmHg (35-45); ARTERIAL BLOOD PH 7.32 (7.35-7.45); ARTERIAL BLOOD PO2 72.3 mmHg (80-100); ARTERIAL BLOOD TOTAL CO2 25.3 mmol/L (23-27)
[2017-06-19 10:23] LABS: ARTERIAL BLOOD FIO2 80%
--- NOTE | 2017-06-19 11:47 | PDOC TRANSFER SUMMARY ---
General Admission Date/PCP: 06/15/17 03:50 NEGRO ALANIS MD Resuscitation Status: Full Code - Transfer Diagnosis (1) Adult respiratory distress syndrome Is this a current diagnosis for this admission?: Yes (2) Septic shock Is this a current diagnosis for this admission?: Yes (3) Psoriatic arthritis Is this a current diagnosis for this admission?: Yes (4) Cellulitis Is this a current diagnosis for this admission?: Yes (5) DM2 (diabetes mellitus, type 2) Is this a current diagnosis for this admission?: Yes (6) Thrombocytopenia Is this a current diagnosis for this admission?: Yes (7) Trigeminal herpes zoster Is this a current diagnosis for this admission?: Yes (8) Acute respiratory failure with hypoxia Is this a current diagnosis for this admission?: Yes (9) Acute kidney failure Is this a current diagnosis for this admission?: Yes (10) Rheumatoid arthritis Is this a current diagnosis for this admission?: Yes - Transfer Medications Home Medications: Benazepril HCl [Lotensin 20 mg Tablet] 20 mg PO Q12 06/15/17 Cetirizine HCl [Zyrtec 10 mg Tablet] 10 mg PO DAILY 06/15/17 Dutasteride [Avodart] 0.5 mg PO DAILY 06/15/17 Ergocalciferol (Vitamin D2) [Drisdol 50,000 Unit (1.25MG) Capsule] 50,000 unit PO WE@1000 06/15/17 Esomeprazole Mag Trihydrate [Nexium] 40 mg PO DAILY 06/15/17 Furosemide [Lasix 40 mg Tablet] 40 mg PO QAMP PRN 06/15/17 Gabapentin [Neurontin 400 mg Capsule] 1,200 mg PO QHS 06/15/17 Meloxicam [Mobic] 7.5 mg PO DAILYP PRN 06/15/17 Oxybutynin Chloride [Oxybutynin Chloride ER] 10 mg PO QHS 06/15/17 Pravastatin Sodium [Pravachol] 40 mg PO QHS 06/15/17 Sitagliptin Phos/Metformin HCl [Janumet 50-500 mg Tablet] 1 tab PO BIDBS Tamsulosin HCl [Flomax 0.4 mg Cap.sr] 0.4 mg PO Q12 06/15/17 Tofacitinib Citrate [Xeljanz] 5 mg PO Q12 06/15/17 Trazodone HCl [Desyrel 50 mg Tablet] 50 mg PO QHS 06/15/17 Transfer Medications: Current Medications Acetaminophen (Tylenol Soln 325 Mg/10.15 Ml Udcup) 650 mg NG Q4 MU Stop: 07/17/17 09:59 Atorvastatin Calcium (Lipitor 10 Mg Tablet) 10 mg NG QHS MU Stop: 07/15/17 21:59 Benazepril HCl (Lotensin 20 Mg Tablet) 20 mg NG Q12 MU Stop: 07/15/17 21:59 Cetirizine HCl (Zyrtec Oral Soln 5 Mg/5 Ml Udcup) 10 mg NG DAILY MU Stop: 07/19/17 09:59 Dextrose (Dextrose Inj 50% Syringe (25 Gm/50 Ml)) 25 gm IV PRN PRN; Protocol PRN Reason: PER PROTOCOL Stop: 07/18/17 11:17 Dextrose (Dextrose Inj 50% Syringe (25 Gm/50 Ml)) 12.5 gm IV PRN PRN; Protocol PRN Reason: FOR BG 50-69 IN ALERT PATIENT Stop: 07/18/17 11:17 Diphenhydramine/Hydrocorti/Nystatin (Magic Mouthwash (Omh Formula) Susp) 5 ml PO QID MU Stop: 07/16/17 17:59 Last Admin: 06/18/17 22:03 Dose: 5 ml Docusate Sodium (Colace 100 Mg Capsule) 100 mg PO DAILY MU Stop: 07/15/17 09:59 Last Admin: 06/18/17 10:43 Dose: 100 mg Dutasteride (Avodart Lf 0.5 Mg Capsule) 0.5 mg PO DAILY MU Stop: 07/16/17 09:59 Last Admin: 06/18/17 10:42 Dose: 0.5 mg Ergocalciferol (Drisdol 50,000 Unit (1.25mg) Capsule) 50,000 unit PO WE@1000 [facility] Stop: 07/21/17 09:59 Fluticasone Propionate (Flonase Nasal [place] 50 Mcg/[place]ster 16 Gm) 2 spray NASL Q12 MU Stop: 07/17/17 09:59 Last Admin: 06/18/17 22:01 Dose: 2 spray Furosemide (Lasix Inj/Pf 40 Mg/4 Ml Sdv) 40 mg IV DAILY MU Stop: 07/19/17 09:59 Gabapentin (Neurontin 400 Mg Capsule) 1,200 mg NG QHS MU Stop: 07/15/17 21:59 Glucagon (Glucagen Inj 1 Mg Vial) 1 mg IM PRN PRN; Protocol PRN Reason: Evaluate for BG < 70 Stop: 07/18/17 11:17 Glucose (Glutose 40% Gel 15 Gm Tube) 15 gm NG PRN PRN; Protocol PRN Reason: FOR BG 50-69 IN ALERT PATIENT Stop: 07/18/17 11:17 Glucose (Glutose 40% Gel 15 Gm Tube) 30 gm NG PRN PRN; Protocol PRN Reason: FOR BG < 50 IN ALERT PATIENT Stop: 07/18/17 11:17 Guaifenesin (Robitussin Syrup 200 Mg/10 Ml Ud Cup) 400 mg NG Q4 [facility] Stop: 07/19/17 09:59 Heparin Sodium (Porcine) (Heparin Flush 10 Unit/Ml 5 Ml Disp.Syrg) 30 unit IV .AFTER EACH USE PRN PRN Reason: AFTER EACH INTERMITTENT USE Stop: 07/19/17 09:44 Heparin Sodium (Porcine) (Heparin Flush 10 Unit/Ml 5 Ml Disp.Syrg) 30 unit IV Q8 [facility] Stop: 07/19/17 13:59 Vancomycin HCl 1,000 mg/ (Dextrose) 250 mls @ 166.667 mls/hr IV Q12 [facility] Stop: 06/23/17 21:59 Last Admin: 06/18/17 23:42 Dose: 1,000 mg Piperacillin Sod/Tazobactam (Sod 2.25 gm/ Sodium Chloride) 50 mls @ 100 mls/hr IV Q6 [facility] Stop: 06/25/17 17:59 Last Admin: 06/19/17 05:59 Dose: 2.25 gm Acyclovir Sodium 1,200 mg/ (Sodium Chloride) 274 mls @ 274 mls/hr IV Q8@0700, 1500,2300 [facility] Stop: 06/25/17 14:59 Last Admin: 06/19/17 06:01 Dose: 1,200 mg Propofol (Diprivan Rtu 1000 Mg/100 Ml Inf.Bottle) 100 mls @ 0 mls/hr IV CONTINUOUS PRN; Protocol; Titrate PRN Reason: THIS MED IS NOT "PRN" Stop: 07/19/17 06:10 Hard Fat/Phenylephrine 40 mg/ (Dextrose) 250 mls @ 0 mls/hr IV CONTINUOUS PRN; Protocol; Titrate PRN Reason: THIS MED IS NOT "PRN" Stop: 07/19/17 08:47 Midazolam HCl (Versed Rtu 50 Mg/100 Ml Premix Bag) 50 mg in 100 mls @ 0 mls/hr IV CONTINUOUS PRN; Protocol; Titrate PRN Reason: THIS MED IS NOT "PRN" Stop: 06/26/17 09:43 Rocuronium [place] 500 mg/ (Sodium Chloride) 500 mls @ 0 mls/hr IV CONTINUOUS PRN; Protocol; Titrate PRN Reason: THIS MED IS NOT "PRN" Stop: 07/19/17 09:43 Insulin Human Lispro (Humalog Insulin 100 Unit/1 Ml 3 Ml Vial) 0 - 12 unit SUBCUT ACHSP PRN; Protocol PRN Reason: PER PROTOCOL Stop: 07/18/17 11:17 Lansoprazole (Prevacid 30 Mg Odt Tablet) 30 mg NG Q6AM MU Stop: 07/20/17 05:59 Levalbuterol HCl (Xopenex Neb 1.25 Mg/3 Ml Ampul) 1.25 mg NEB RTQ4HP PRN PRN Reason: COUGH/WHEEZING Stop: 07/18/17 06:14 Last Admin: 06/19/17 02:34 Dose: 1.25 mg Morphine Sulfate (Morphine 10 Mg/Ml Inj) 5 mg IV Q2HP PRN PRN Reason: PAIN RESTLESSNESS Stop: 06/26/17 06:12 Oseltamivir Phosphate (Tamiflu 75 Mg Capsule) 75 mg NG Q12 [facility] Stop: 06/24/17 09:59 Oxybutynin Chloride (Ditropan 5 Mg Tablet) 10 mg NG QHS MU Stop: 07/15/17 21:59 Oxycodone/Acetaminophen (Percocet 5-325 Mg Tablet) 1 tab NG Q4HP PRN PRN Reason: PAIN Stop: 06/22/17 05:11 Pharmacy Profile Note (Medication Communication Order) 1 each MC .NOTICE NR Stop: 07/19/17 05:44 Sodium Chloride (Saline Flush 2.5 Ml Monoject Prefil Syrin) 2.5 ml IV Q8 [facility] Stop: 07/15/17 05:59 Last Admin: 06/19/17 06:00 Dose: 2.5 ml Sodium Chloride (Nacl 0.9% Inj/Pf 10 Ml Sdv) 10 ml IV .AFTER EACH USE PRN PRN Reason: AFTER EACH INTERMITTENT USE Stop: 07/19/17 09:44 Tamsulosin HCl (Flomax 0.4 Mg Cap.Sr) 0.4 mg PO Q12 MU Stop: 07/15/17 21:59 Last Admin: 06/18/17 22:02 Dose: 0.4 mg Trazodone HCl (Desyrel 50 Mg Tablet) 50 mg NG QHS MU Stop: 07/15/17 21:59 Zolpidem Tartrate (Ambien 5 Mg Tablet) 5 mg NG HSP PRN PRN Reason: SLEEP OR INSOMNIA Stop: 06/22/17 05:11 - Allergies Allergies/Adverse Reactions: No Known Allergies Allergy (Verified 06/14/17 18:54) Hospital Course Hospital Course: The patient is a 66-year-old male who has underlying rheumatoid arthritis. Currently, his only drug for rheumatoid arthritis is Xeljanz. He was previously on methotrexate but this was discontinued several months ago. He has not received prednisone in greater than one year according to his . The patient came in on the with evidence of trigeminal neuralgia. This occurred after he received the Zostavax immunization for herpes zoster. He was immunized last week. He also developed a purulent rash on his face concerning for superinfection. Therefore, the patient was admitted to the hospital for IV antibiotics for cellulitis on the right side of his face on the . During the patient's hospitalization he has developed progressive hypoxic respiratory failure and now has evidence of ARDS. The patient was transferred to the intensive care unit yesterday for noninvasive ventilation. Early this morning, the patient was intubated for progressive hypoxic respiratory failure. He is now paralyzed and sedated secondary to poor oxygen saturation saturation. Patient was normotensive until this morning. This morning, the patient has evidence of severe shock. This is presumed septic shock. The patient is currently on to IV vasopressors, Clint-Synephrine and Levophed. The patient does have underlying chronic kidney disease stage III. He has progressive renal failure during this hospitalization. At this time the patient has very little urine output. We are now making arrangements to transfer the patient to a tertiary care hospital as we do not have the facilities to provide dialysis in the form of CRRT. Additional subspecialists are recommended. Bronchoscopy is planned for later today, however, if patient is transferred we may allow this to be done at the receiving facility so that results can be more readily available for the accepting team. Physical Exam Vital Signs: Temp Pulse Resp BP Pulse Ox 99.1 F 113 H 31 H 80/50 L 94 06/19/17 10:00 06/19/17 10:00 06/19/17 10:00 06/19/17 10:00 06/19/17 10:00 Intake & Output 06/18/17 06/19/17 06/20/17 06:59 06:59 06:59 Intake Total 4838 1384 Output Total 2130 1780 20 Balance 2708 -396 -20 Weight 120.5 kg Additional comments: The patient appears to be his stated age. When I examined the patient this morning he was intubated and sedated. He was not in sync with the ventilator. This was noted before paralytics were added. The patient was noted to have a course of breath sounds throughout all lung saeed. The breath sounds on the right were more pronounced than on the left. No wheezing was noted. The cardiac exam was noted to be distant but regular. I did not appreciate any murmurs, gallops or rubs. The abdomen was fairly soft. There is no guarding or rebound noted. No hernias or masses are present. Bowel sounds were hypoactive but were present. The lower extremities did not demonstrate any pitting edema. The patient does have a crusted rash on his face on the right cheek and over the right periorbital area, otherwise there are no acute skin lesions or rashes. Results Laboratory Results: 06/19/17 03:37 06/19/17 03:37 06/18/17 06/18/17 06/18/17 11:29 11:29 20:05 WBC 8.5 RBC 3.35 L Hgb 11.0 L Hct 32.6 L MCV 97 MCH 32.8 MCHC 33.8 RDW 13.5 Plt Count 59 L Seg Neutrophils % Lymphocytes % Monocytes % Eosinophils % Basophils % Absolute Neutrophils Absolute Lymphocytes Absolute Monocytes Absolute Eosinophils Absolute Basophils Carbonic Acid 1.07 HCO3/H2CO3 Ratio 22:1 ABG pH 7.45 ABG pCO2 35.5 ABG pO2 84.9 ABG HCO3 24.3 ABG O2 Saturation 96.9 ABG Base Excess 0.6 FiO2 50% Sodium Potassium Chloride Carbon Dioxide Anion Gap BUN Creatinine 1.83 H Est GFR ( Amer) 45 L Est GFR (Non-Af Amer) 37 L Glucose Calcium Phosphorus Magnesium Total Bilirubin AST ALT Alkaline Phosphatase Total Protein Albumin 06/19/17 06/19/17 06/19/17 03:15 03:37 03:37 WBC 7.5 RBC 3.06 L Hgb 10.1 L Hct 29.7 L MCV 97 MCH 33.1 MCHC 34.1 RDW 13.4 Plt Count 71 L Seg Neutrophils % Not Reportable Lymphocytes % Not Reportable Monocytes % Not Reportable Eosinophils % Not Reportable Basophils % Not Reportable Absolute Neutrophils Not Reportable Absolute Lymphocytes Not Reportable Absolute Monocytes Not Reportable Absolute Eosinophils Not Reportable Absolute Basophils Not Reportable Carbonic Acid 0.97 L HCO3/H2CO3 Ratio 23:1 ABG pH 7.48 H ABG pCO2 32.1 L ABG pO2 51.5 L ABG HCO3 23.1 ABG O2 Saturation 89.2 L ABG Base Excess 0.1 FiO2 50% Sodium Potassium Chloride Carbon Dioxide Anion Gap BUN Creatinine Est GFR ( Amer) Est GFR (Non-Af Amer) Glucose Calcium Phosphorus 3.1 Magnesium 2.1 Total Bilirubin AST ALT Alkaline Phosphatase Total Protein Albumin 06/19/17 06/19/17 03:37 09:59 WBC RBC Hgb Hct MCV MCH MCHC RDW Plt Count Seg Neutrophils % Lymphocytes % Monocytes % Eosinophils % Basophils % Absolute Neutrophils Absolute Lymphocytes Absolute Monocytes Absolute Eosinophils Absolute Basophils Carbonic Acid 1.42 H HCO3/H2CO3 Ratio 16:1 ABG pH 7.32 L ABG pCO2 47.2 H ABG pO2 72.3 L ABG HCO3 23.8 ABG O2 Saturation 93.3 L ABG Base Excess -2.4 FiO2 80% Sodium 140.5 Potassium 3.8 Chloride 106 Carbon Dioxide 28 Anion Gap 7 BUN 37 H Creatinine 1.99 H Est GFR ( Amer) 41 L Est GFR (Non-Af Amer) 34 L Glucose 101 Calcium 8.3 L Phosphorus Magnesium Total Bilirubin 1.9 H AST 98 H ALT 40 Alkaline Phosphatase 57 Total Protein 6.1 L Albumin 2.7 L 06/15/17 06/16/17 06/19/17 06:15 04:12 03:37 Creatine Kinase 318 H CK-MB (CK-2) Troponin I NT-Pro-B Natriuret Pep 2700 H 4120 H 06/19/17 03:37 Creatine Kinase CK-MB (CK-2) 2.10 Troponin I 0.036 NT-Pro-B Natriuret Pep 2920 H Impressions: Facial Bones CT 06/17/17 00:00 IMPRESSION: Mild interval decrease in the diffuse soft tissue swelling along the right side of the face with mild overlying soft tissue thickening. Chest X-Ray 06/19/17 05:40 IMPRESSION: 1. Endotracheal tube and NG tube in appropriate position. Diffuse bilateral airspace opacities are unchanged. Plan Discharge Plan: The patient will require care at a tertiary care hospital. He will likely require emergent life-saving treatments that we cannot provide here such as CRRT. The family is very much in agreement with transfer. Currently, I am working on transferring the patient to [facility] or [facility] If the patient goes to [facility] he has been accepted by Dr. Blanco the MICU attending. If the patient goes to [facility] he has been accepted by Dr. oMseley the MICU fellow. Time Spent: Greater than 30 Minutes
[2017-06-19] MEDS ORDERED: VANCOMYCIN HCL 0 MG in DEXTROSE 5%-WATER 250 ML IV NR (12:15)
[2017-06-19] MEDS: DEXTROSE 5%-WATER 250 ML with PHENYLEPHRINE HCL 40 MG IV PRN ×6 (12:20→19:06)
[2017-06-19] MEDS: VANCOMYCIN HCL 1,000 MG in DEXTROSE 5%-WATER 250 ML IV SCH (12:21)
[2017-06-19] MEDS: GUAIFENESIN SYRP 200 MG/10 ML UDC NG SCH ×3 (12:32→17:58)
[2017-06-19] MEDS: ACETAMINOPHEN SOLN 325 MG/10.15 ML UDCUP NG SCH ×3 (12:32→17:58)
[2017-06-19] MEDS: DOCUSATE SODIUM 100 MG CAPSULE PO SCH (12:32)
[2017-06-19] MEDS: DUTASTERIDE 0.5 MG CAPSULE PO SCH (12:32)
[2017-06-19] MEDS: TAMSULOSIN HCL 0.4 MG CAP.SR.24H PO SCH (12:32)
[2017-06-19] MEDS: FLUTICASONE NASAL SPRAY 50 MCG/SPRY 120 SPRAY/16 GM NASL SCH (12:32)
[2017-06-19] MEDS: NYSTATIN/DEXAMETH/DIPHEN SUSP 120 ML PO SCH ×3 (12:32→17:38)
[2017-06-19] MEDS ORDERED: LIDOCAINE 1% INJ-PF (10 MG/ML) 30 ML SDV ONE (12:47)
--- NOTE | 2017-06-19 12:57 | EKG REPORT ---
SEVERITY:- ABNORMAL ECG - SINUS TACHYCARDIA PAIRED VENTRICULAR PREMATURE COMPLEXES CONSIDER ANTERIOR INFARCT BORDERLINE T ABNORMALITIES, CONSIDER OLD INFERIOR CA. : Confirmed by: Mani Thomson MD 19-Jun-2017 12:56:24
[2017-06-19 13:15] LABS: ARTERIAL BLOOD FIO2 100%; ARTERIAL BLOOD H2CO3 1.32 mmol/L (1.05-1.35); ARTERIAL BLOOD HCO3 22.8 mmol/L (20-26); ARTERIAL BLOOD O2 SATURATION 98.9 % (94-98); ARTERIAL BLOOD PCO2 43.7 mmHg (35-45); ARTERIAL BLOOD PH 7.34 (7.35-7.45); ARTERIAL BLOOD PO2 157.5 mmHg (80-100); ARTERIAL BLOOD TOTAL CO2 24.1 mmol/L (23-27)
[2017-06-19 13:18] LABS: ABSOLUTE EOSINOPHILS # (AUTO) 0.1 10^3/uL (0.0-0.6); ABSOLUTE MONOCYTES (AUTO) 0.7 10^3/uL (0.1-1.4); ABSOLUTE NEUT (AUTO) 10.8 10^3/uL (1.7-8.2); BASOPHILS % (AUTO) 0.2 % (0-2); EOSINOPHILS % (AUTO) 0.5 % (0-6); HEMATOCRIT 28.5 % (37.9-51.0); HEMOGLOBIN 9.6 g/dL (13.5-17.0); LYMPHOCYTES % (AUTO) 7.9 % (13-45); MEAN CORPUSCULAR HEMOGLOBIN 33.1 pg (27.0-33.4); MEAN CORPUSCULAR HGB CONC 33.7 g/dL (32.0-36.0); MEAN CORPUSCULAR VOLUME 98 fl (80-97); MONOCYTES % (AUTO) 5.9 % (3-13); RED CELL DISTRIBUTION WIDTH 13.3 % (11.5-14.0); SEGMENTED NEUTROPHILS % (AUTO) 85.5 % (42-78); TOTAL CELLS COUNTED % (AUTO) 100 %; WHITE BLOOD COUNT 12.6 10^3/uL (4.0-10.5)
--- NOTE | 2017-06-19 13:25 | Operative Report ---
Nonrecallable Operative Report DATE OF SURGERY: 06/19/17 PREOPERATIVE DIAGNOSIS: Respiratory failure POSTOPERATIVE DIAGNOSIS: Same OPERATION: 1. Placement of right subclavian triple-lumen central venous access catheter SURGEON: MAHNAZ FRERIE ANESTHESIA: Local TISSUE REMOVED OR ALTERED: None COMPLICATIONS: None ESTIMATED BLOOD LOSS: Scant INTRAOPERATIVE FINDINGS: See below PROCEDURE: Informed consent was obtained. The patient was placed in Trendelenburg the right subclavian area was exposed , prepped and draped in a sterile fashion. Surgical plan and surgical timeout discussed. The right subclavian area was anesthetized with 1% lidocaine without epinephrine. An 18-gauge needle and wire were threaded into the right subclavian vein. The tract was dilated up, the dilator removed, and the triple- lumen central venous access catheter was threaded into the right subclavian vein uneventfully to the hub. There was excellent aspiration and flush of saline through all 3 lumens. The catheter was affixed to the skin with a Biopatch and 2-0 silk suture; sterile dressing applied. The patient tolerated the procedure well. There were no complications. Portable upright chest x-ray pending at time of dictation.
[2017-06-19 13:32] LABS: ANION GAP 10 (5-19); BLOOD UREA NITROGEN 44 mg/dL (7-20); CALCIUM 7.8 mg/dL (8.4-10.2); CARBON DIOXIDE 22 mmol/L (22-30); CHLORIDE 107 mmol/L (98-107); GLUCOSE 127 mg/dL (75-110); POTASSIUM 4.2 mmol/L (3.6-5.0); SODIUM 139.3 mmol/L (137-145)
[2017-06-19 13:37] LABS: PLATELET COUNT 93 10^3/uL (150-450)
--- NOTE | 2017-06-19 13:48 | OPERATIVE REPORT E ---
Operative Report NAME: STEFF LIND : 1950 AGE: 66Y DATE OF SURGERY: ROOM: 607 PREOPERATIVE DIAGNOSIS: RESPIRATORY FAILURE; SHOCK. POSTOPERATIVE DIAGNOSIS: RESPIRATORY FAILURE; SHOCK. OPERATION: PLACEMENT OF RIGHT RADIAL ARTERY ARTERIAL MONITORING CATHETER UNDER ULTRASOUND GUIDANCE. SURGEON: MAHNAZ FREIRE M.D. ANESTHESIA: 1% lidocaine plain. COMPLICATIONS: None. ESTIMATED BLOOD LOSS: Minimal. DRAINS: None. TISSUE REMOVED: None. FINDINGS: See below. SUMMARY OF PROCEDURE: The patient's right wrist and arm were externally rotated and secured into position with restraints. The patient was pharmacologically sedated and eventually paralyzed while on the ventilator. Right wrist was scanned with the variable-frequency linear transducer and the radial artery was felt to be suitable for cannulation. Skin was anesthetized with 1% plain lidocaine after prepping the skin with alcohol. A small lindsey was made in the skin with an 18-gauge needle, and using ultrasound as a guide, a 20-gauge arterial catheter was threaded into the right radial artery without difficulty. There was excellent blood flow through the catheter. The monitoring pressure devices were secured into position with an appropriate wave from obtained. Catheter was secured to the skin at 2 sites with 2-0 silk suture. Sterile dressing was applied with Biopatch. The patient tolerated the procedure well. DICTATING PHYSICIAN: MAHNAZ FREIRE M.D. [id number] Y#: [id number] ID: [id number] JOB#: [id number] ACCT: [id number] cc:MAHNAZ FREIRE M.D. >
[2017-06-19] MEDS: DEXTROSE 5%-WATER 250 ML with NOREPINEPHRINE BITARTRATE 4 MG IV PRN ×4 (14:16→17:59)
[2017-06-19] MEDS ORDERED: SUCCINYLCHOLINE CHLORIDE INJ 200 MG/10 ML VIAL ONE (14:34)
[2017-06-19 14:44] LABS: FLUID APPEARANCE HAZY; FLUID COLOR STRAW; FLUID SOURCE LUNG; FLUID TYPE BRONCHIAL WASH; FLUID VISCOSITY SLIGHTLY VISCOUS
[2017-06-19] MEDS ORDERED: RINGERS SOLUTION,LACTATED 1,000 ML IV PRN (15:07)
[2017-06-19 15:18] LABS: ARTERIAL BLOOD BASE EXCESS -10.2 mmol/L; ARTERIAL BLOOD H2CO3 0.71 mmol/L (1.05-1.35); ARTERIAL BLOOD HCO3 13.5 mmol/L (20-26); ARTERIAL BLOOD O2 SATURATION 98.5 % (94-98); ARTERIAL BLOOD PCO2 23.6 mmHg (35-45); ARTERIAL BLOOD PH 7.38 (7.35-7.45); ARTERIAL BLOOD PO2 123.5 mmHg (80-100); ARTERIAL BLOOD TOTAL CO2 14.2 mmol/L (23-27)
[2017-06-19 15:19] LABS: ARTERIAL BLOOD FIO2 75%
[2017-06-19 18:45] VITALS: BP 115/48
[2017-06-19] MEDS ORDERED: GABAPENTIN 400 MG CAPSULE NG SCH (22:00)
[2017-06-19] MEDS ORDERED: ATORVASTATIN CALCIUM 10 MG TABLET NG SCH (22:00)
[2017-06-19] MEDS ORDERED: OXYBUTYNIN CHLORIDE 5 MG TABLET NG SCH (22:00)
[2017-06-19] MEDS ORDERED: TRAZODONE HCL 50 MG TABLET NG SCH (22:00)
[2017-06-20] MEDS ORDERED: LANSOPRAZOLE 30 MG TAB.RAP.DR NG SCH (06:00)
[2017-06-21] MEDS ORDERED: ERGOCALCIFEROL (VITAMIN D2) 50000 UNIT (1.25 MG) CAPSULE PO SCH (10:00)
--- NOTE | 2017-06-21 18:14 | EKG REPORT ---
SEVERITY:- ABNORMAL ECG - SINUS TACHYCARDIA PAIRED VENTRICULAR PREMATURE COMPLEXES CONSIDER ANTERIOR INFARCT BORDERLINE T ABNORMALITIES, INFERIOR LEADS : Confirmed by: Mani Thomson MD 21-Jun-2017 18:14:04
== END 2017-06-19 19:51 | disposition short-term general hospital (02) | DRG 602 ==
LOC: ER 18:53 → OBSVTOIN 06-15 03:50 → EH 06-15 03:50 → 4S 06-15 19:30 → 3W 06-17 18:32 → ICU 06-18 11:57
PROVIDERS: ADMIT Internal Medicine; ATTEND Internal Medicine
PROC: 03HY32Z Insertion of Monitoring Device into Upper Artery, Percutaneous Approach (ICD-10-PCS; principal; 2017-06-19)
PROC: 02HV33Z Insertion of Infusion Device into Superior Vena Cava, Percutaneous Approach (ICD-10-PCS; 2017-06-19)
PROC: 0BH17EZ Insertion of Endotracheal Airway into Trachea, Via Natural or Artificial Opening (ICD-10-PCS; 2017-06-19)
PROC: 5A1935Z Respiratory Ventilation, Less than 24 Consecutive Hours (ICD-10-PCS; 2017-06-19)
DX: L03.211 Cellulitis of face (principal); A41.9 Sepsis, unspecified organism; R65.21 Severe sepsis with septic shock; J96.01 Acute respiratory failure with hypoxia; B02.22 Postherpetic trigeminal neuralgia; J80 Acute respiratory distress syndrome; N17.9 Acute kidney failure, unspecified; I12.9 Hypertensive chronic kidney disease with stage 1 through stage 4 chronic kidney disease, or unspecified chronic kidney disease; E11.22 Type 2 diabetes mellitus with diabetic chronic kidney disease; N18.3 Chronic kidney disease, stage 3 (moderate); M06.9 Rheumatoid arthritis, unspecified; K21.9 Gastro-esophageal reflux disease without esophagitis; L40.9 Psoriasis, unspecified; D69.6 Thrombocytopenia, unspecified; N40.1 Benign prostatic hyperplasia with lower urinary tract symptoms; Z79.84 Long term (current) use of oral hypoglycemic drugs; Z79.899 Other long term (current) drug therapy; Z90.49 Acquired absence of other specified parts of digestive tract
CPT/HCPCS: 36415; 70486; 70487; 71045; 71046; 80048; 80053; 80061; 80202; 81001; 82550; 82553; 82565; 82803; 82962; 83036; 83605; 83735; 83880; 84100; 84484; 85025; 85027; 85362; 85384; 85610; 85730; 87015; 87040; 87070; 87077; 87086; 87101; 87116; 87186; 87205; 87206; 87252; 87486; 87804; 89050; 93005; 93010; 94002; 94640; 94660; 96361; 96365; 96367; 99285; J0133; J0295; J0330; J1650; J1940; J2250; J2270; J2370; J2543; J2704; J3370; J3490; J7030; J7040; J7050; J7060; J7120